=== PATIENT | male | born 1980 | race Caucasian/White ===

== ENCOUNTER → 2020-04-14 16:28 | Outpatient (BNVA) | payer OTHER, SELFPAY | PROVIDERS: PCP Family Medicine; Referring Provider Family Medicine; Visit Provider Anesthesiology | DX: G82.50 Quadriplegia, unspecified (principal); F11.99 Opioid use, unspecified with unspecified opioid-induced disorder; S24.101S Unspecified injury at T1 level of thoracic spinal cord, sequela | CPT/HCPCS: Q3014 ==

== ENCOUNTER → 2020-05-13 14:07 | Outpatient (BNVA) | payer OTHER, SELFPAY | PROVIDERS: PCP Family Medicine; Visit Provider Family Medicine Adult Medicine | DX: G82.50 Quadriplegia, unspecified (principal); Z98.1 Arthrodesis status | CPT/HCPCS: 99202 ==

== ENCOUNTER → 2020-06-08 15:20 | Outpatient (BNVA) | payer OTHER, SELFPAY | PROVIDERS: PCP Family Medicine; Visit Provider Family Medicine Adult Medicine | DX: G82.50 Quadriplegia, unspecified (principal); Z98.1 Arthrodesis status; Z79.899 Other long term (current) drug therapy | CPT/HCPCS: 99212 ==

== ENCOUNTER → 2020-07-08 15:37 | Outpatient (BNVA) | payer OTHER, SELFPAY | PROVIDERS: PCP Family Medicine; Visit Provider Family Medicine Adult Medicine | DX: G82.50 Quadriplegia, unspecified (principal); Z98.1 Arthrodesis status; Z79.899 Other long term (current) drug therapy | CPT/HCPCS: 99212 ==

== ENCOUNTER → 2020-08-10 14:56 | Outpatient (BNVA) | payer OTHER, SELFPAY | PROVIDERS: PCP Family Medicine; Visit Provider Family Medicine Adult Medicine | DX: G82.50 Quadriplegia, unspecified (principal); Z98.1 Arthrodesis status | CPT/HCPCS: Q3014 ==

== ENCOUNTER → 2020-09-09 15:05 | Outpatient (BNVA) | payer OTHER, SELFPAY | PROVIDERS: PCP Family Medicine; Visit Provider Family Medicine Adult Medicine | DX: Z98.1 Arthrodesis status (principal); G82.50 Quadriplegia, unspecified | CPT/HCPCS: Q3014 ==

== ENCOUNTER → 2020-09-30 15:20 | Outpatient (BNVA) | payer OTHER, SELFPAY | PROVIDERS: PCP Internal Medicine Hematology; Visit Provider Family Medicine Adult Medicine | DX: G82.50 Quadriplegia, unspecified (principal); Z98.1 Arthrodesis status; Z79.899 Other long term (current) drug therapy | CPT/HCPCS: 99212 ==

== ENCOUNTER → 2020-10-28 15:44 | Outpatient (BNVA) | payer OTHER, SELFPAY | PROVIDERS: PCP Family Medicine; Visit Provider Family Medicine Adult Medicine | DX: G82.50 Quadriplegia, unspecified (principal); Z98.1 Arthrodesis status | CPT/HCPCS: 99212 ==

== ENCOUNTER → 2020-12-02 15:48 | Outpatient (BNVA) | payer OTHER, SELFPAY | PROVIDERS: PCP Family Medicine; Visit Provider Family Medicine Adult Medicine | DX: G82.50 Quadriplegia, unspecified (principal); Z98.1 Arthrodesis status | CPT/HCPCS: 99212 ==

== ENCOUNTER → 2021-01-05 14:44 | Outpatient (BNVA) | payer OTHER, SELFPAY | PROVIDERS: PCP Otolaryngology; Visit Provider Nurse Practitioner Family | DX: G82.50 Quadriplegia, unspecified (principal); Z98.1 Arthrodesis status; Z99.3 Dependence on wheelchair; Z79.891 Long term (current) use of opiate analgesic; Z79.899 Other long term (current) drug therapy | CPT/HCPCS: 99212 ==

== ENCOUNTER → 2021-02-01 15:03 | Outpatient (BNVA) | payer OTHER, SELFPAY | PROVIDERS: Visit Provider Family Medicine Adult Medicine | DX: Z51.81 Encounter for therapeutic drug level monitoring (principal); S24.101S Unspecified injury at T1 level of thoracic spinal cord, sequela; G82.50 Quadriplegia, unspecified; F11.90 Opioid use, unspecified, uncomplicated | CPT/HCPCS: 99212 ==

== ENCOUNTER → 2021-03-03 15:47 | Outpatient (BNVA) | payer OTHER, SELFPAY | PROVIDERS: Visit Provider Family Medicine Adult Medicine | DX: S24.101S Unspecified injury at T1 level of thoracic spinal cord, sequela (principal); G82.50 Quadriplegia, unspecified; F11.20 Opioid dependence, uncomplicated; Z51.81 Encounter for therapeutic drug level monitoring; Z79.899 Other long term (current) drug therapy | CPT/HCPCS: 99212 ==

== ENCOUNTER → 2021-04-12 15:56 | Outpatient (BNVA) | payer OTHER, SELFPAY | PROVIDERS: Visit Provider Family Medicine Adult Medicine | DX: Z51.81 Encounter for therapeutic drug level monitoring (principal); F11.20 Opioid dependence, uncomplicated | CPT/HCPCS: 99211 ==

== ENCOUNTER → 2021-05-10 13:16 | Outpatient (BNVA) | payer OTHER, SELFPAY | PROVIDERS: PCP Family Medicine; Visit Provider Nurse Practitioner Family | DX: Z51.81 Encounter for therapeutic drug level monitoring (principal); F11.20 Opioid dependence, uncomplicated; L20.9 Atopic dermatitis, unspecified; G82.50 Quadriplegia, unspecified; S24.101S Unspecified injury at T1 level of thoracic spinal cord, sequela; Z98.1 Arthrodesis status; Z99.3 Dependence on wheelchair | CPT/HCPCS: 99212 ==

== ENCOUNTER 2021-06-07 15:24 | Outpatient (REF) | payer OTHER, SELFPAY | END 2021-06-07 15:25 | disposition home or self-care (01) | LOC: HO.LAB 15:24 | PROVIDERS: PCP Family Medicine; Visit Provider Nurse Practitioner Family | DX: G89.4 Chronic pain syndrome (principal); F11.20 Opioid dependence, uncomplicated; S24.101S Unspecified injury at T1 level of thoracic spinal cord, sequela; G82.50 Quadriplegia, unspecified; Z98.1 Arthrodesis status | CPT/HCPCS: 99212 ==

== ENCOUNTER → 2021-07-05 15:54 | Outpatient (BNVA) | payer OTHER, SELFPAY | PROVIDERS: PCP Family Medicine; Visit Provider Nurse Practitioner Family | DX: Z51.81 Encounter for therapeutic drug level monitoring (principal); F11.20 Opioid dependence, uncomplicated; G82.50 Quadriplegia, unspecified; S24.101S Unspecified injury at T1 level of thoracic spinal cord, sequela; Z98.1 Arthrodesis status; Z99.3 Dependence on wheelchair | CPT/HCPCS: 99212 ==

== ENCOUNTER → 2021-09-05 15:40 | Outpatient (BNVA) | payer OTHER, SELFPAY | PROVIDERS: PCP Family Medicine; Visit Provider Nurse Practitioner Family | DX: Z51.81 Encounter for therapeutic drug level monitoring (principal); F11.20 Opioid dependence, uncomplicated | CPT/HCPCS: 99212 ==

== ENCOUNTER → 2021-11-04 14:31 | Outpatient (BNVA) | payer OTHER, SELFPAY | PROVIDERS: PCP Family Medicine; Visit Provider Nurse Practitioner Family | DX: M62.838 Other muscle spasm (principal); G82.50 Quadriplegia, unspecified; S24.101S Unspecified injury at T1 level of thoracic spinal cord, sequela; Z98.1 Arthrodesis status; Z79.891 Long term (current) use of opiate analgesic | CPT/HCPCS: 99212 ==

== ENCOUNTER → 2022-01-02 14:56 | Outpatient (BNVA) | payer OTHER, SELFPAY | PROVIDERS: PCP Family Medicine; Visit Provider Nurse Practitioner Family | DX: S24.101S Unspecified injury at T1 level of thoracic spinal cord, sequela (principal); X58.XXXS Exposure to other specified factors, sequela; G62.9 Polyneuropathy, unspecified; G82.54 Quadriplegia, C5-C7 incomplete; M62.838 Other muscle spasm; Z98.1 Arthrodesis status; Z99.3 Dependence on wheelchair | CPT/HCPCS: 99212 ==

== ENCOUNTER → 2022-01-30 15:21 | Outpatient (BNVA) | payer OTHER, SELFPAY | PROVIDERS: PCP Family Medicine; Visit Provider Nurse Practitioner Family | DX: S24.101S Unspecified injury at T1 level of thoracic spinal cord, sequela (principal); G82.50 Quadriplegia, unspecified; G62.9 Polyneuropathy, unspecified; Z98.1 Arthrodesis status; M62.838 Other muscle spasm | CPT/HCPCS: 99212 ==

== ENCOUNTER → 2022-03-03 14:59 | Outpatient (BNVA) | payer OTHER, SELFPAY | PROVIDERS: PCP Family Medicine; Visit Provider Nurse Practitioner Family | DX: Z51.81 Encounter for therapeutic drug level monitoring (principal); F11.20 Opioid dependence, uncomplicated; G62.9 Polyneuropathy, unspecified; G82.50 Quadriplegia, unspecified; M62.838 Other muscle spasm; S24.101S Unspecified injury at T1 level of thoracic spinal cord, sequela; Z98.1 Arthrodesis status | CPT/HCPCS: 99212 ==

== ENCOUNTER → 2022-04-18 15:03 | Outpatient (BNVA) | payer OTHER, SELFPAY | PROVIDERS: PCP Family Medicine; Visit Provider Nurse Practitioner Family | DX: Z51.81 Encounter for therapeutic drug level monitoring (principal); F11.20 Opioid dependence, uncomplicated; G82.50 Quadriplegia, unspecified; M62.838 Other muscle spasm; G62.9 Polyneuropathy, unspecified; S24.101S Unspecified injury at T1 level of thoracic spinal cord, sequela; Z98.1 Arthrodesis status | CPT/HCPCS: 99212 ==

== ENCOUNTER → 2022-06-20 15:00 | Outpatient (BNVA) | payer OTHER, SELFPAY | PROVIDERS: PCP Family Medicine; Visit Provider Nurse Practitioner Family | DX: Z51.81 Encounter for therapeutic drug level monitoring (principal); G82.50 Quadriplegia, unspecified; G62.9 Polyneuropathy, unspecified; G89.29 Other chronic pain; M62.838 Other muscle spasm; K62.89 Other specified diseases of anus and rectum; N31.8 Other neuromuscular dysfunction of bladder; S24.101D Unspecified injury at T1 level of thoracic spinal cord, subsequent encounter; Z98.1 Arthrodesis status | CPT/HCPCS: 99212 ==

== ENCOUNTER 2022-07-20 14:06 | Outpatient (REF) | payer OTHER, SELFPAY ==
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
== END 2022-07-20 14:07 | disposition home or self-care (01) ==
LOC: HO.MRI 14:06
PROVIDERS: PCP Family Medicine; Visit Provider Nurse Practitioner Family
DX: S14.106A Unspecified injury at C6 level of cervical spinal cord, initial encounter (principal); S24.101S Unspecified injury at T1 level of thoracic spinal cord, sequela; G82.50 Quadriplegia, unspecified; G89.4 Chronic pain syndrome; Z98.1 Arthrodesis status
CPT/HCPCS: 72146; 72148

== ENCOUNTER → 2022-07-28 14:52 | Outpatient (BNVA) | payer OTHER, SELFPAY | PROVIDERS: PCP Family Medicine; Visit Provider Urology | DX: N31.8 Other neuromuscular dysfunction of bladder (principal); R32 Unspecified urinary incontinence | CPT/HCPCS: 51798; 99202 ==

== ENCOUNTER 2022-08-02 05:54 | Outpatient (REF) | payer OTHER, SELFPAY ==
--- NOTE | ~2022-08-02 | FL_ITS ---
EXAMINATION: XR FLUOROSCOPY WITH IMAGES CLINICAL INFORMATION: K62.89 - Other specified diseases of anus and rectum COMPARISON: MR lumbar spine 07/20/2022 TECHNIQUE: Fluoroscopy Supervised By: Dr. Ady Kennedy. Fluoroscopy Time: 0.2 minutes. Cumulative Dose: 11.4 mGy. DAP: 1.44 Gycm2. Images: 1. FINDINGS: There is a spinal needle overlying the lower coccyx with fifth overlying the anterior cortex. There is contrast extending along the anterior aspect of the coccyx. No visible vascular communication. FL/FL guidance in treatment room IMPRESSION: Fluoroscopy for pain management procedure.
== END 2022-08-02 05:55 | disposition home or self-care (01) ==
LOC: CF 05:54
PROVIDERS: Visit Provider Internal Medicine
DX: K62.89 Other specified diseases of anus and rectum (principal); G89.4 Chronic pain syndrome
CPT/HCPCS: 64999; J1020

== ENCOUNTER → 2022-08-15 15:25 | Outpatient (BNVA) | payer OTHER, SELFPAY | PROVIDERS: PCP Family Medicine; Visit Provider Nurse Practitioner Family | DX: Z51.81 Encounter for therapeutic drug level monitoring (principal); F11.20 Opioid dependence, uncomplicated; M62.838 Other muscle spasm; K62.89 Other specified diseases of anus and rectum; G89.29 Other chronic pain; S24.101S Unspecified injury at T1 level of thoracic spinal cord, sequela; Z98.1 Arthrodesis status | CPT/HCPCS: 99212 ==

== ENCOUNTER → 2022-09-25 13:54 | Outpatient (BNVA) | payer OTHER, SELFPAY | PROVIDERS: PCP Family Medicine; Visit Provider Internal Medicine | DX: G89.4 Chronic pain syndrome (principal); S14.106D Unspecified injury at C6 level of cervical spinal cord, subsequent encounter | CPT/HCPCS: 99212 ==

== ENCOUNTER → 2022-11-20 15:36 | Outpatient (BNVA) | payer OTHER, SELFPAY | PROVIDERS: Visit Provider Nurse Practitioner Family | DX: Z79.891 Long term (current) use of opiate analgesic (principal) | CPT/HCPCS: 99211 ==

== ENCOUNTER 2022-12-04 15:44 | Outpatient (AMB) | payer OTHER, SELFPAY ==
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
== END 2022-12-04 15:52 | disposition home or self-care (01) ==
PROVIDERS: PCP Family Medicine; Visit Provider Nurse Practitioner Family
DX: S14.106A Unspecified injury at C6 level of cervical spinal cord, initial encounter (principal); G89.4 Chronic pain syndrome
CPT/HCPCS: 99442

== ENCOUNTER → 2022-12-04 15:44 | Outpatient (BNVA) | payer OTHER, SELFPAY | PROVIDERS: PCP Family Medicine; Visit Provider Nurse Practitioner Family ==

== ENCOUNTER 2023-01-15 15:25 | Outpatient (AMB) | payer OTHER, SELFPAY ==
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
[2023-01-15 15:42] VITALS: BP 118/71; PULSE 72; O2SAT 98; BMI 27.4
== END 2023-01-15 15:51 | disposition home or self-care (01) ==
PROVIDERS: PCP Family Medicine; Visit Provider Nurse Practitioner Family
DX: G89.4 Chronic pain syndrome (principal); G82.50 Quadriplegia, unspecified; M62.838 Other muscle spasm; Z79.891 Long term (current) use of opiate analgesic; Z98.1 Arthrodesis status; S24.101S Unspecified injury at T1 level of thoracic spinal cord, sequela
CPT/HCPCS: 99214

== ENCOUNTER → 2023-01-15 15:25 | Outpatient (BNVA) | payer OTHER, SELFPAY | PROVIDERS: PCP Family Medicine; Visit Provider Nurse Practitioner Family | DX: G89.4 Chronic pain syndrome (principal); M62.838 Other muscle spasm; G82.50 Quadriplegia, unspecified; S24.101S Unspecified injury at T1 level of thoracic spinal cord, sequela; Z98.1 Arthrodesis status | CPT/HCPCS: 99212 ==

== ENCOUNTER 2023-03-16 15:02 | Outpatient (AMB) | payer OTHER, SELFPAY ==
[2023-03-16 15:20] VITALS: BP 140/88; PULSE 64; RESP 16; O2SAT 95; BMI 27.4
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
== END 2023-03-16 15:35 | disposition home or self-care (01) ==
PROVIDERS: PCP Family Medicine; Visit Provider Registered Nurse Emergency
DX: G89.4 Chronic pain syndrome (principal); S24.101S Unspecified injury at T1 level of thoracic spinal cord, sequela; G82.50 Quadriplegia, unspecified; Z79.891 Long term (current) use of opiate analgesic; Z98.1 Arthrodesis status; M62.838 Other muscle spasm
CPT/HCPCS: 99213

== ENCOUNTER → 2023-03-16 15:02 | Outpatient (BNVA) | payer OTHER, SELFPAY | PROVIDERS: PCP Family Medicine; Visit Provider Registered Nurse Emergency | DX: Z51.81 Encounter for therapeutic drug level monitoring (principal); F11.20 Opioid dependence, uncomplicated; M62.838 Other muscle spasm; G82.50 Quadriplegia, unspecified; G89.4 Chronic pain syndrome; Z98.1 Arthrodesis status; S24.101S Unspecified injury at T1 level of thoracic spinal cord, sequela | CPT/HCPCS: 99212 ==

== ENCOUNTER 2023-05-18 14:59 | Outpatient (AMB) | payer OTHER, SELFPAY ==
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
[2023-05-18 15:12] VITALS: BP 138/79; PULSE 62; O2SAT 97; BMI 29.0
== END 2023-05-18 15:29 | disposition home or self-care (01) ==
PROVIDERS: PCP Family Medicine; Visit Provider Nurse Practitioner Family
DX: S24.101S Unspecified injury at T1 level of thoracic spinal cord, sequela (principal); G82.50 Quadriplegia, unspecified; Z98.1 Arthrodesis status; G89.4 Chronic pain syndrome; M62.838 Other muscle spasm; N31.9 Neuromuscular dysfunction of bladder, unspecified
CPT/HCPCS: 99214

== ENCOUNTER → 2023-05-18 14:59 | Outpatient (BNVA) | payer OTHER, SELFPAY | PROVIDERS: PCP Family Medicine; Visit Provider Nurse Practitioner Family | DX: G89.4 Chronic pain syndrome (principal); G82.50 Quadriplegia, unspecified; S24.101S Unspecified injury at T1 level of thoracic spinal cord, sequela; M62.838 Other muscle spasm; N31.9 Neuromuscular dysfunction of bladder, unspecified; Z98.1 Arthrodesis status | CPT/HCPCS: 99212 ==

== ENCOUNTER 2023-07-13 14:55 | Outpatient (AMB) | payer OTHER, SELFPAY ==
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
[2023-07-13 15:18] VITALS: BP 130/86; PULSE 66; RESP 16; O2SAT 98; BMI 29.0
== END 2023-07-13 15:29 | disposition home or self-care (01) ==
PROVIDERS: PCP Family Medicine; Visit Provider Nurse Practitioner Family
DX: G89.4 Chronic pain syndrome (principal); G82.50 Quadriplegia, unspecified; S24.101S Unspecified injury at T1 level of thoracic spinal cord, sequela; Z79.891 Long term (current) use of opiate analgesic; Z98.1 Arthrodesis status; M62.838 Other muscle spasm; M54.2 Cervicalgia
CPT/HCPCS: 99214

== ENCOUNTER → 2023-07-13 14:55 | Outpatient (BNVA) | payer OTHER, SELFPAY | PROVIDERS: PCP Family Medicine; Visit Provider Nurse Practitioner Family | DX: Z51.81 Encounter for therapeutic drug level monitoring (principal); F11.20 Opioid dependence, uncomplicated; M62.838 Other muscle spasm; M54.2 Cervicalgia; M25.511 Pain in right shoulder; G82.50 Quadriplegia, unspecified; G89.4 Chronic pain syndrome; S24.101S Unspecified injury at T1 level of thoracic spinal cord, sequela | CPT/HCPCS: 99212 ==

== ENCOUNTER 2023-09-04 15:15 | Outpatient (AMB) | payer OTHER, SELFPAY ==
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
[2023-09-04 15:28] VITALS: BP 119/80; PULSE 80; O2SAT 97; BMI 29.0
== END 2023-09-04 15:46 | disposition home or self-care (01) ==
PROVIDERS: PCP Family Medicine; Visit Provider Nurse Practitioner Family
DX: G89.4 Chronic pain syndrome (principal); M62.838 Other muscle spasm; G82.50 Quadriplegia, unspecified; Z79.891 Long term (current) use of opiate analgesic; K62.89 Other specified diseases of anus and rectum; Z98.1 Arthrodesis status; G89.29 Other chronic pain; M79.18 Myalgia, other site; G62.9 Polyneuropathy, unspecified; M25.511 Pain in right shoulder; S14.106A Unspecified injury at C6 level of cervical spinal cord, initial encounter; S24.101S Unspecified injury at T1 level of thoracic spinal cord, sequela
CPT/HCPCS: 99214

== ENCOUNTER → 2023-09-04 15:15 | Outpatient (BNVA) | payer OTHER, SELFPAY | PROVIDERS: PCP Family Medicine; Visit Provider Nurse Practitioner Family | DX: Z51.81 Encounter for therapeutic drug level monitoring (principal); F11.20 Opioid dependence, uncomplicated; S14.106A Unspecified injury at C6 level of cervical spinal cord, initial encounter; S24.101S Unspecified injury at T1 level of thoracic spinal cord, sequela; G82.50 Quadriplegia, unspecified; M62.838 Other muscle spasm; K62.89 Other specified diseases of anus and rectum; M79.18 Myalgia, other site; G62.9 Polyneuropathy, unspecified; M25.511 Pain in right shoulder; G89.29 Other chronic pain; Z98.1 Arthrodesis status | CPT/HCPCS: 99212 ==

== ENCOUNTER 2023-10-30 14:57 | Outpatient (AMB) | payer OTHER, SELFPAY ==
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
[2023-10-30 15:08] VITALS: BP 138/102; PULSE 67; O2SAT 97; BMI 25.8
[2023-10-30 15:09] VITALS: BP 167/96
== END 2023-10-30 15:29 | disposition home or self-care (01) ==
PROVIDERS: PCP Family Medicine; Visit Provider Nurse Practitioner Family
DX: G89.4 Chronic pain syndrome (principal); M62.838 Other muscle spasm; G82.50 Quadriplegia, unspecified; Z98.1 Arthrodesis status; S24.101S Unspecified injury at T1 level of thoracic spinal cord, sequela
CPT/HCPCS: 99214

== ENCOUNTER → 2023-10-30 14:57 | Outpatient (BNVA) | payer OTHER, SELFPAY | PROVIDERS: PCP Family Medicine; Visit Provider Nurse Practitioner Family | DX: G82.54 Quadriplegia, C5-C7 incomplete (principal); S14.106S Unspecified injury at C6 level of cervical spinal cord, sequela; S24.101S Unspecified injury at T1 level of thoracic spinal cord, sequela; M62.838 Other muscle spasm; G89.4 Chronic pain syndrome; Z98.1 Arthrodesis status; Z79.891 Long term (current) use of opiate analgesic | CPT/HCPCS: 99212 ==

== ENCOUNTER 2024-01-10 15:08 | Outpatient (AMB) | payer OTHER, SELFPAY ==
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
[2024-01-10 15:21] VITALS: BP 144/90; PULSE 75; RESP 16; O2SAT 94
== END 2024-01-10 15:39 | disposition home or self-care (01) ==
PROVIDERS: PCP Family Medicine; Visit Provider Nurse Practitioner Family
DX: G82.50 Quadriplegia, unspecified (principal); G89.4 Chronic pain syndrome; M79.18 Myalgia, other site; G89.29 Other chronic pain; Z98.1 Arthrodesis status; S24.101S Unspecified injury at T1 level of thoracic spinal cord, sequela; M62.838 Other muscle spasm; S14.106A Unspecified injury at C6 level of cervical spinal cord, initial encounter
CPT/HCPCS: 99214; G2211

== ENCOUNTER → 2024-01-10 15:08 | Outpatient (BNVA) | payer OTHER, SELFPAY | PROVIDERS: PCP Family Medicine; Visit Provider Nurse Practitioner Family | DX: G82.54 Quadriplegia, C5-C7 incomplete (principal); M79.18 Myalgia, other site; G89.29 Other chronic pain; S24.101S Unspecified injury at T1 level of thoracic spinal cord, sequela; S14.106A Unspecified injury at C6 level of cervical spinal cord, initial encounter; X58.XXXA Exposure to other specified factors, initial encounter; Y93.9 Activity, unspecified; Y92.9 Unspecified place or not applicable; Y99.9 Unspecified external cause status; Z98.1 Arthrodesis status | CPT/HCPCS: 99212 ==

== ENCOUNTER 2024-05-12 15:54 | Outpatient (AMB) | payer OTHER, SELFPAY ==
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
[2024-05-12 16:16] VITALS: BP 202/118; BP 207/131; PULSE 62; O2SAT 98; BMI 29.0
[2024-05-12 16:17] VITALS: BP 130/62
== END 2024-05-12 16:28 | disposition home or self-care (01) ==
PROVIDERS: PCP Family Medicine; Visit Provider Nurse Practitioner Family
DX: G82.50 Quadriplegia, unspecified (principal); G89.4 Chronic pain syndrome; M79.18 Myalgia, other site; G89.29 Other chronic pain; Z98.1 Arthrodesis status; S14.106A Unspecified injury at C6 level of cervical spinal cord, initial encounter; Z79.891 Long term (current) use of opiate analgesic
CPT/HCPCS: 99214; G2211

== ENCOUNTER → 2024-05-12 15:54 | Outpatient (BNVA) | payer OTHER, SELFPAY | PROVIDERS: PCP Family Medicine; Visit Provider Nurse Practitioner Family | DX: Z51.81 Encounter for therapeutic drug level monitoring (principal); M79.18 Myalgia, other site; F11.20 Opioid dependence, uncomplicated; G82.50 Quadriplegia, unspecified; G89.29 Other chronic pain; S14.106D Unspecified injury at C6 level of cervical spinal cord, subsequent encounter; Z98.1 Arthrodesis status | CPT/HCPCS: 99212 ==

== ENCOUNTER 2024-07-07 15:05 | Outpatient (AMB) | payer OTHER, SELFPAY ==
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
[2024-07-07 16:03] VITALS: BP 140/70; PULSE 78
--- OUTSIDE RECORDS SUMMARY | 2024-07-07 17:57 | XMS_ITS | Encounter Summary ---
Author Organization [facility] Address [address] [facility] [address] [place] [address] Care Team Providers Care Surgical Dressing Maker Name Role Phone Unavailable Primary Care Provider Unavailabl e Encounter Details Date Type Department Care Team (Latest Contact Info) Description 10/12/[address] [facility] Dental, Provider, DDS Social History Tobacco Use Types Packs/Day Years Used Date Smoking Tobacco: Never Assessed Sex and Gender Information Value Date Recorded Sex Assigned at Male 03/06/2022 10:23 AM EDT Legal Sex Male 10:23 AM EDT Gender Identity Male 03/06/2022 10:23 AM EDT Sexual Orientation Choose not to disclose 2021 10:23 AM EDT documented as of this encounter Plan of Treatment Upcoming Encounters Date Type Department Care Team (Late st Contact Info) Description 07/23/2024 4:00 PM EDT Office Visit [facility] [address] [place] [phone] Kym Pedroza BDS [address] [place] [id number] 12/08/2024 4:00 PM EDT Office Visit [facility] [address] [place] [address] Orquidea Ruby [address] [place] [address] documented as of this encounter Visit Diagnoses Not on filedocumented in this encounter
--- OUTSIDE RECORDS SUMMARY | 2024-07-07 17:57 | XMS_ITS | Clinical Summary ---
Author Organization [employer] Address [address] [facility] [address] [place] [address] Care Team Providers Care Podiatric Surgeon Name Role Phone Unavailable Primary Care Provider Unavailabl e Allergies No known active allergies Medications Amphetamine-De xtroamphetamin e (ADDERALL PO) Take by mouth. Activ e nitrofurantoin (Macrodantin) 50 MG capsule Take 1 capsule by mouth every 6 (six) hours. Active Ergocalciferol (Vitamin D2) 50 MCG (2000 UT) tablet take 1 capsule ([id number]) by oral route every week Active oxyCODONE (Roxicodone) 2.5 MG immediate release split tablet Take 1 tablet by mouth every 4 (four) hours. Active oxybutynin (Ditropan) 2.5 mg split tablet Take 1 tablet by mouth every 12 (twelve) hours. Active sennosides (Senokot) 4.3 mg tablet (HALF TABLET) take 2 tablet by oral route every day as needed for constipation Active alendronate (Fosamax) 70 MG tablet Take 1 tablet by mouth once a week. Active amLODIPine (Norvasc) 10 MG tablet TAKE 1 TABLET BY MOUTH 1 TIME EACH DAY. 2 Active Azelastine HCl 137 MCG/SPRAY solution INHALE 1 TO 2 SPRAYS INTO NOSTRILS TWICE A DAY 2 Active baclofen (Lioresal) 20 MG tablet Take 20 mg by mouth in the morning, at noon, and at bedtime. 2 Active [facility] Acne Treatment 10 % gel APPLY 1 APPLICATION TWICE A DAY TO CHEST*N/C 2 Active buprenorphine (Butrans) 15 MCG/HR APPLY 1 PATCH TRANSDERMALLY EVERY 7 DAYS NEEDED FOR PAIN FOR 28 DAYS 2 Active clindamycin (Clindagel) 1 % gel APPLY 1 APPLICATION TWICE DAILY TO CHEST 2 Active clonazePAM (KlonoPIN) 1 MG tablet TAKE 1/2 TABLET BY MOUTH TWICE A DAY AND TAKE 1 TABLET AT BEDTIME 2 Active cloNIDine (Catapres) 0.1 MG tablet Take 0.1 mg by mouth in the morning and at bedtime. 2 Active DULoxetine (Cymbalta) [address] capsule Take 1 capsule by mouth every 12 (twelve) hours. Active DULoxetine (Cymbalta) [address] capsule Take 60 mg by mouth in the morning. 2 Active gabapentin (Neurontin) 600 MG tablet 2 Active ibuprofen 800 MG tablet 2 Active ketoconazole (NIZOral) 2 % shampoo APPLY TO SCALP 2X/WK, LEAVE ON 5 MINUTES THEN WASH OFF 2 Active lisinopril 20 MG tablet TAKE 1 TABLET (20 MG TOTAL) BY MOUTH ONE TIME EACH DAY 2 Active oxybutynin (Ditropan) 5 MG tablet TAKE 1 TABLET BY MOUTH FOUR TIMES A DAY STOP THE OXYBUTYNIN ER 15 MG DOSE 2 Active Trintellix 10 MG tablet Take 1 tablet by mouth in the morning. 2 Active Active Problems No known active problems Encounters Date Type Department Care Team Description 07/01/2024 4:00 PM EST Office Visit [facility] [address] [place] [phone] Kym Pedroza BDS 06/04/2024 4:00 PM EST Office Visit [facility] [address] [place] [phone] Orquidea Ruby from Last 3 Months Social History Tobacco Use Types Packs/Day Years Used Date Smoking Tobacco: Former Cigarettes Smokeless Tobacco: Never Tobacco Cessation:Counseling Given: Not Answered Sex and Gender Information Value Date Recorded Sex Assigned at Male 03/06/2022 10:23 AM EDT Legal Sex Male 10:23 AM EDT Gender Identity Male 03/06/2022 10:23 AM EDT Sexual Orientation Choose not to disclose 2021 10:23 AM EDT Last Filed Vital Signs Vital Sign Reading Time Taken Comments Blood Pressure 160/115 06/04/2024 4:23 PM EST 170 /112 Pt stated his BP usually runs higher Pulse 74 06/04/2024 4:23 PM EST Temperature - - Respiratory Rate - - Oxygen Saturation - - Inhaled Oxygen Concentration - - Weight - - Height - - Body Mass Index - - Plan of Treatment Upcoming Encounters Date Type Department Care Team (Late st Contact Info) Description 07/23/2024 4:00 PM EDT Office Visit [facility] [address] [place] [phone] Kym Pedroza BDS [address] [place] [address] 12/08/2024 4:00 PM EDT Office Visit [facility] [address] [place] [phone] Orquidea Ruby [address] [place], [place] [phone] Health Maintenance Due Date Last Done Comments CT Colonography 1978 Colonoscopy 1978 Colorectal Cancer Screening 1978 Dental X-Ray: Bitewings 1978 Dental X-Ray: Full Mouth 1978 Depression Screening 1978 FIT DNA/Cologuard 1978 FIT 1978 FOBT 1978 HIV Screening 1978 Lipid Panel 1978 SDOH Screening 1978 Sigmoidoscopy 1978 Alcohol/Substance Use Screening 1990 Family Planning (PISQ) 1993 Hepatitis C Screening 02/06/1996 DTaP/Tdap/Td Vaccines (1 - Tdap) 1997 Hepatitis B Vaccines (1 of 3 - 19+ 3-dose series) 1997 COVID-19 Vaccine (4 2023-2 5 season) 2024 05/12/2021, 08/26/2020, 08/05/2020 Influenza Vaccine (#1) 2024 Dental Prophylaxis 12/03/2024 06/04/2024, 11/23/2022, 05/02/2022 Dental Oral Exam 12/30/2024 07/01/2024 Tobacco Screening 07/01/2025 07/01/2024 Zoster Vaccines (1 of 2) 02/06/2028 RSV Patients and Patients Aged 60 years or older (1 - 1-dose 75+ series) 2053 HIB Vaccines Aged Out No longer eligi ble based on patient's age to complete this topic HPV Vaccines Aged Out No longer eligi ble based on patient's age to complete this topic Hepatitis A Vaccines Aged Out No long er eligible based on patient's age to complete this topic IPV Vaccines Aged Out No longer eligi ble based on patient's age to complete this topic Meningococcal Vaccine Aged Out No rocio elie eligible based on patient's age to complete this topic Pneumococcal Vaccine: Pediatrics (0 to 5 Years) and At-Risk Patients (6 to 49) Years) Aged Out No longer eligible b ased on patient's age to complete this topic RSV under 20 months Aged Out No longe r eligible based on patient's age to complete this topic Rotavirus Vaccines Aged Out No longer eligible based on patient's age to complete this topic Procedures Procedure Name Priority Date/Time Associated Diagnosis Comments INTRAORAL - PERIAPICAL EACH ADDITIONAL RADIOGRAPHIC IMAGE Routine 07/01/2024 4:00 PM EST INTRAORAL - PERIAPICAL EACH ADDITIONAL RADIOGRAPHIC IMAGE Routine 07/01/2024 4:00 PM EST INTRAORAL - PERIAPICAL EACH ADDITIONAL RADIOGRAPHIC IMAGE Routine 07/01/2024 4:00 PM EST INTRAORAL - PERIAPICAL FIRST RADIOGRAPHIC IMAGE Routine 07/01/2024 4:00 PM EST PERIODIC ORAL EVALUATION - ESTABLISHED PATIENT Routine 07/01/2024 4:00 PM EST TOPICAL APPLICATION OF FLUORIDE - EXCLUDING VARNISH Routine 06/04/2024 4:00 PM EST PROPHYLAXIS - ADULT Routine 06/04/2024 4 :00 PM EST CASE PRESENTATION, DETAILED AND EXTENSIVE TREATMENT PLANNING Routine 06/04/2024 4:00 PM EST Max COMPLETE DENTURE Routine 06/04/2024 12:00 AM EST 11 EXTRACTION Routine 06/04/2024 12:00 AM EST 10 EXTRACTION Routine 06/04/2024 12:00 AM EST 9 EXTRACTION Routine 06/04/2024 12:00 AM EST 8 EXTRACTION Routine 06/04/2024 12:00 AM EST 7 EXTRACTION Routine 06/04/2024 12:00 AM EST 6 EXTRACTION Routine 06/04/2024 12:00 AM EST from Last 3 Months Insurance DENTAL [facility]
--- OUTSIDE RECORDS SUMMARY | 2024-07-07 17:57 | XMS_ITS | Encounter Summary ---
Author Organization [employer] Address [address] [facility] [address] [place] [address] Care Team Providers Care Fourdrinier Tender Name Role Phone Unavailable Primary Care Provider Unavailabl e Reason for Visit * Reason Comments Dental Exam Encounter Details Date Type Department Care Team (Late st Contact Info) Description 07/01/2024 4:00 PM EST Office Visit [facility] [address] [place], [place] [phone] Kym Pedroza BDS [address] [place] [address] Social History Tobacco Use Types Packs/Day Years Used Date Smoking Tobacco: Former Cigarettes Smokeless Tobacco: Never Sex and Gender Information Value Date Recorded Sex Assigned at Male 03/06/2022 10:23 AM EDT Legal Sex Male 10:23 AM EDT Gender Identity Male 03/06/2022 10:23 AM EDT Sexual Orientation Choose not to disclose 2021 10:23 AM EDT documented as of this encounter Progress Notes * Kym Pedroza BDS - 07/01/2024 4:00 PM EST Dental procedures in this visit D0120 - PERIODIC ORAL EVALUATION - ESTABLISHED PATIENT (Completed) Service provider: Kym Pedroza BDS Billing provider: Kym Pedroza BDS D0220 - INTRAORAL - PERIAPICAL FIRST RADIOGRAPHIC IMAGE (Completed) Service provider: Kym Pedroza BDS Billing provider: Kym Pedroza BDS D0230 - INTRAORAL - PERIAPICAL EACH ADDITIONAL RADIOGRAPHIC IMAGE (Completed) Service provider: Kym Pedroza BDS Billing provider: Kym Pedroza BDS D0230 - INTRAORAL - PERIAPICAL EACH ADDITIONAL RADIOGRAPHIC IMAGE (Completed) Service provider: Kym Pedroza BDS Billing provider: Kym Pedroza BDS D0230 - INTRAORAL - PERIAPICAL EACH ADDITIONAL RADIOGRAPHIC IMAGE (Completed) Service provider: Kym Pedroza BDS Billing provider: Kym Pedroza BDS Subjective Patient ID: Aki Leal is a 44 y.o. male. Chief Complaint Patient presents with Dental Exam HPI Objective Soft Tissue Exam No findings documented this visit Dental Exam Extensive restorations on multiple teeth.Need crowns on 20,22,27,29 Radiographic Interpretation: Associated radiographs for today's visit were reviewed and finding(s) were discussed with the patient. Findings include: No findings Hard Tissue Exam: Gross/rampant decay Assessment/Plan Multiple surface big restorations on all teeth Crowns on 20,22,27,29 multiple teeth to maintain structure,function and integrity. documented in this encounter Plan of Treatment Upcoming Encounters Date Type Department Care Team (Late st Contact Info) Description 07/23/2024 4:00 PM EDT Office Visit [facility] [address] [place] [phone] Kym Pedroza BDS [address] [place] [phone] 12/08/2024 4:00 PM EDT Office Visit [facility] [address] [place] [phone] Orquidea Ruby [address] [place] [phone] Scheduled Orders Name Type Priority Associated Diagnoses Orde r Schedule 27 27 CROWN - PORCELAIN/CERAMIC Dental Routine 1 Occurrences starting 07/01/2024 29 29 CROWN - PORCELAIN/CERAMIC Dental Routine 1 Occurrences starting 07/01/2024 22 22 CROWN - PORCELAIN/CERAMIC Dental Routine 1 Occurrences starting 07/01/2024 21 21 CROWN - PORCELAIN/CERAMIC Dental Routine 1 Occurrences starting 07/01/2024 documented as of this encounter Procedures Procedure Name Priority Date/Time Associated Diagnosis Comments PERIODIC ORAL EVALUATION - ESTABLISHED PATIENT Routine 07/01/2024 4:00 PM EST INTRAORAL - PERIAPICAL FIRST RADIOGRAPHIC IMAGE Routine 07/01/2024 4:00 PM EST INTRAORAL - PERIAPICAL EACH ADDITIONAL RADIOGRAPHIC IMAGE Routine 07/01/2024 4:00 PM EST INTRAORAL - PERIAPICAL EACH ADDITIONAL RADIOGRAPHIC IMAGE Routine 07/01/2024 4:00 PM EST INTRAORAL - PERIAPICAL EACH ADDITIONAL RADIOGRAPHIC IMAGE Routine 07/01/2024 4:00 PM EST documented in this encounter Visit Diagnoses Not on filedocumented in this encounter
--- OUTSIDE RECORDS SUMMARY | 2024-07-07 17:57 | XMS_ITS | Continuity of Care Document ---
Author Organization [facility] Address [address] [place] [address]- Care Team Providers Care Time Signal Wirer Name Role Phone Rikki Fletcher DO Primary Care Physician Encounter [facility] Date(s): 05/15/24 - 06/14/24 [facility] [address] [place] [id number] Encounter Type: Triage Allergies, Adverse Reactions, Alerts No Known Allergies Immunizations Given and Recorded Vaccine Date Status Refusal Reason SARS-CoV-2 (COVID-19) mRNA-1273 vaccine 05/12/21 R ecorded SARS-CoV-2 (COVID-19) mRNA BNT-162b2 vac 08/26/20 Recorded SARS-CoV-2 (COVID-19) mRNA BNT-162b2 vac 08/05/20 Recorded Medications 4x4 Power Wheelchair 4x4 Power Wheelchair, See Instructions, # 1 each, Refills 0, Tot. Refills 0, Maintenance, dx Tetraplegic G82.53, 08/29/23 3:45:00 AM EDT, Supply Start Date: 08/29/23 Status: Ordered Quantity: 1.0 Unit: each Repeat number: 1 Adderall 20 mg oral tablet 1 tablet = 20 mg, By Mouth, 2 times a day, # 60 tablet, 0 Refills, Maintenance, 04/14/24 12:51:00 PMEST, [facility]/pharmacy #[id number], Partial fill upon patient request if the prescription is for a schedule IIopioid drug., 1 tablet By Mouth 2 times a day, 172, cm, 02/19/24 15:33:00 EDT, Height, 81, kg, 09/05/23 16:09:00 EDT, Dry Weight Start Date: 04/14/24 Status: Ordered Quantity: 60.0 Unit: tablet Repeat number: 1 baclofen 20 mg oral tablet 1, tablet, By Mouth, 3 times a day, # 270 tablet, Refills 0, Tot. Refills 0, Maintenance, 01/21/24 12:26:00 PM EDT, Route to Pharmacy Electronically, [facility]/pharmacy #[id number], 172, cm, 11/22/23 15:01:00 EDT, Height, 81, kg, 09/05/23 16:09:00 EDT, Dry Weight Start Date: 01/21/24 Status: Ordered Quantity: 270.0 Unit: tablet Repeat number: 1 BACLOFEN 20 MG TABLET BACLOFEN 20 MG TABLET, 1, tablet, By Mouth, 3 times a day, # 270 tablet, 0 Refills, Maintenance, 03/27/24 1:59:00 PM EST, 172, cm, 02/19/24 15:33:00 EDT, Height, 81, kg, 09/05/23 16:09:00 EDT, Dry Weight Start Date: 03/27/24 Status: Ordered Quantity: 270.0 Unit: tablet Repeat number: 1 Bilateral LE Custom Thigh High Flat Knit CC II 30-40 mm Hg Compression Stockings Bilateral LE Custom Thigh High Flat Knit CC II 30-40 mm Hg Compression Stockings, See Instructions,# 2 pair, Refills 2, Tot. Refills 2, Maintenance, Wear daily all day. Dx: Edema 782.3, 07/13/11 11:19:49 AM EST Start Date: 07/13/11 Status: Ordered Quantity: 2.0 Unit: pair Repeat number: 3 Brace On 90 Degree Night Splint Brace On 90 Degree Night Splint, See Instructions, # 2 each, Refills 0, Tot. Refills 0, Maintenance, Bilateral night splint for dx: equinus deformity M21.62, 05/13/24 5:41:00 PM EST, Supply Start Date: 05/13/24 Status: Ordered Quantity: 2.0 Unit: each Repeat number: 1 buprenorphine 15 mcg/hr transdermal film, extended release 1 patch, Topically, Every Sunday, 0 Refills, Maintenance, 10/30/22 1:00:00 PM EDT, Partial fill uponpatient request if the prescription is for a schedule II opioid drug. Start Date: 10/30/22 Status: Ordered Repeat number: 1 Cannabis (Schedule I Substance) 0 Refills, Maintenance, 11/09/15 12:55:41 PM EDT Start Date: 11/09/15 Status: Ordered Repeat number: 1 clonazePAM 1 mg oral tablet See Instructions, 0.5 tablet twice a day and 1 tablet at bedtime, # 60 tablet, 3 Refills, Maintenance, spasticity, 04/14/24 12:53:00 PM EST, [facility]/pharmacy #[id number], Fill when it's due, 172, cm, 02/19/24 15:33:00 EDT, Height, 81, kg, 09/05/23 16:09:00 EDT, Dry Weight Start Date: 04/14/24 Status: Ordered Quantity: 60.0 Unit: tablet Repeat number: 4 cloNIDine 0.1 mg oral tablet 1, tablet, By Mouth, 2 times a day, # 180 tablet, Refills 1, Tot. Refills 1, Maintenance, 05/17/24 11:39:00 AM EST, Route to Pharmacy Electronically, [facility]/pharmacy #[id number], 172, cm, 02/19/24 15:33:00 EDT, Height, 81, kg, 09/05/23 16:09:00 EDT, Dry Weight Start Date: 05/17/24 Status: Ordered Quantity: 180.0 Unit: tablet Repeat number: 2 Compression- Lower Extremity (Knee High) See Instructions, # 1 pair, Refills 4, Tot. Refills 4, Maintenance, use daily, 01/28/14 3:18:23 PM EDT Start Date: 01/28/14 Status: Ordered Quantity: 1.0 Unit: pair Repeat number: 5 duloxetine 30 mg oral enteric coated capsule 1 capsule = 30 mg, By Mouth, Daily, for 90 days, Take in the afternon; continue taking the 60 mg inthe morning, # 90 capsule, 1 Refills, Hard Stop 07/12/24 12:34:00 PM EST, 01/14/24 12:34:00 PM EDT, [facility]/pharmacy #[id number], Partial fill upon patient request if the prescription is for a schedule II opioid drug., 172, cm, 11/22/23 15:01:00 EDT, Height, 81, kg, 09/05/23 16:09:00 EDT, Dry Weight Start Date: 01/14/24 Stop Date: 07/12/24 Status: Ordered Quantity: 90.0 Unit: capsule Repeat number: 2 duloxetine 60 mg oral enteric coated capsule 1 capsule = 60 mg, By Mouth, Daily, for 90 days, # 90 capsule, 1 Refills, Hard Stop 07/12/24 12:37:00PM EST, 01/14/24 12:37:00 PM EDT, EC Capsule, [facility]/pharmacy #[id number], 172, cm, 11/22/23 15:01:00 EDT, Height, 81, kg, 09/05/23 16:09:00 EDT, Dry Weight Start Date: 01/14/24 Stop Date: 07/12/24 Status: Ordered Quantity: 90.0 Unit: capsule Repeat number: 2 Econazole Nitrate 1% topical cream 1 application, Topically, 2 times a day, USE SPARINGLY., # 30 Gm, 0 Refills, [id number], 30, APPLY 1 APPLICATION TOPICALLY 2 TIMES A DAY,USE SPARINGLY, 172, cm, 01/13/21 14:18:00 EDT, Height, 79.38, kg, 05/11/20 10:46:00 EST, Dry Weight Start Date: 04/05/21 Status: Ordered Quantity: 30.0 Unit: g Repeat number: 1 Flonase 50 mcg/inh nasal spray 2 sprays, Nares, Both, Daily at bedtime, 0 Refills, Maintenance, 10/30/22 12:59:00 PM EDT, [place], Partial fill upon patient request if the prescription is for a schedule II opioid drug. Start Date: 10/30/22 Status: Ordered Repeat number: 1 gabapentin 300 mg oral capsule 600 mg, 2, capsule, By Mouth, 2 times a day, Refills 0, Maintenance, 08/03/21 3:39:00 PM EDT, Partial fill upon patient request if the prescription is for a schedule II opioid drug. Start Date: 08/03/21 Status: Ordered Repeat number: 1 GaviLAX oral powder for reconstitution = 17 Gm, By Mouth, Daily, DISSOLVE IN WATER BEFORE TAKING, # 510 Gm, 5 Refills, Maintenance, 10/23/23 5:27:00 PM EDT, [id number], 30, TAKE 17 GM BY MOUTH DAILY:DISSOLVE IN WATER BEFORE TAKING, 172, cm, 09/07/23 15:27:00 EDT, Height, 81, kg, 09/05/23 16:09:00 EDT, Dry Weight Start Date: 10/23/23 Status: Ordered Quantity: 510.0 Unit: g Repeat number: 1 Gloves, n/s or sterile, 100 per box Gloves, n/s or sterile, 100 per box, See Instructions, # 2 units, Refills 12, Tot. Refills 12, Maintenance, Dx: neurogenic bladder. Lifetime need, 11/26/14 1:29:00 PM EDT, Compound Start Date: 11/26/14 Status: Ordered Quantity: 2.0 Unit: Units Repeat number: 13 High back shower chair with tilt High back shower chair with tilt, See Instructions, # 1 units, Refills 0, Tot. Refills 0, Maintenance, Dx: Tetraplegia. Wt. 169 lbs., 05/31/17 4:22:00 PM EST, Compound Start Date: 05/31/17 Status: Ordered Quantity: 1.0 Unit: Units Repeat number: 1 Erik lift Erik lift, See Instructions, # 1 units, Refills 0, Tot. Refills 0, Maintenance, Dx: Tetraplegia, 12/31/14 12:32:59 PM EDT, Compound Start Date: 12/31/14 Status: Ordered Quantity: 1.0 Unit: Units Repeat number: 1 iBOT Personal Mobility iBOT Personal Mobility, See Instructions, # 1 each, Refills 0, Tot. Refills 0, Maintenance, use formobility, 12/06/23 3:27:00 PM EDT, Supply, 172, cm, 11/22/23 15:01:00 EDT, Height, 81, kg, 09/05/23 16:09:00 EDT, Dry Weight Start Date: 12/06/23 Status: Ordered Quantity: 1.0 Unit: each Repeat number: 1 Indication: Quadriplegia, unspecified Intermittent Urinary Catheter with insertion supply Intermittent Urinary Catheter with insertion supply, See Instructions, # 180 units, Refills 12, Tot. Refills 12, Maintenance, For 6X dailly use. Dx: neurogenic bladder, 11/26/14 1:26:27 PM EDT, Compound Start Date: 11/26/14 Status: Ordered Quantity: 180.0 Unit: Units Repeat number: 13 Large underpads Large underpads, See Instructions, # 150 units, Refills 12, Tot. Refills 12, Maintenance, use 6X / day. Dx: neurogenic bowel & bladder. Lifetime need, 11/26/14 1:33:33 PM EDT, Compound Start Date: 11/26/14 Status: Ordered Quantity: 150.0 Unit: Units Repeat number: 13 lisinopril 10 mg oral tablet 10 mg, 1, tablet, By Mouth, Daily, # 90 tablet, Refills 1, Tot. Refills 1, Maintenance, 01/14/24 3:02:00 PM EDT, Route to Pharmacy Electronically, [facility]/pharmacy #[id number], Partial fill upon patient request if the prescription is for a schedule II opioid drug., 172, cm, 11/22/23 15:01:00 EDT, Height, 81, kg, 09/05/23 16:09:00 EDT, Dry Weight Start Date: 01/14/24 Status: Ordered Quantity: 90.0 Unit: tablet Repeat number: 2 LLE Knee High Flat Knit CC II 30-40 mm Hg Compression Stockings LLE Knee High Flat Knit CC II 30-40 mm Hg Compression Stockings, See Instructions, # 2 each, Refills 1, Tot. Refills 1, Maintenance, Wear daily all day. Dx: Edema, 782.3, 06/01/11 9:59:29 AM EST Start Date: 06/01/11 Status: Ordered Quantity: 2.0 Unit: each Repeat number: 2 Lubricant 4 oz Lubricant 4 oz, See Instructions, # 1 units, Refills 12, Tot. Refills 12, Maintenance, Use 2x/day Dx: Neurogenic bowel & bladder., 11/26/14 1:32:05 PM EDT, Compound Start Date: 11/26/14 Status: Ordered Quantity: 1.0 Unit: Units Repeat number: 13 Mattress overlay with pump (alternating mattress for ulcer prevention)- Mattress overlay with pump (alternating mattress for ulcer prevention)-, See Instructions, # 1 each, Refills 0, Tot. Refills 0, Maintenance, see E Rx, 04/02/23 9:08:00 AM EST, tetraplegis-C 6 complete; ICD 10-G82.53, Supply Start Date: 04/02/23 Status: Ordered Quantity: 1.0 Unit: each Repeat number: 1 Memory foam hospital bed mattress Memory foam [facility] bed mattress, See Instructions, # 1 each, Refills 0, Tot. Refills 0, Maintenance, dx Tetraplegic G82.53 to prevent bed sores, 08/29/23 3:45:00 AM EDT, Supply Start Date: 08/29/23 Status: Ordered Quantity: 1.0 Unit: each Repeat number: 1 midodrine 2.5 mg oral tablet 2.5 mg, 1, tablet, By Mouth, 3 times a day, Refills 0, Maintenance, 10/07/21 2:57:00 PM EDT, Partial fill upon patient request if the prescription is for a schedule II opioid drug. Start Date: 10/07/21 Status: Ordered Repeat number: 1 Narcan 4 mg/0.1 mL nasal spray = 4 mg, Inhalation, Once, may repeat every 2 to 3 minutes until patient responds, # 2 each, 0 Refills, Soft Stop, 11/22/16 4:26:03 PM EDT, [facility]/pharmacy #[id number] Start Date: 11/22/16 Status: Ordered Quantity: 2.0 Unit: each Repeat number: 1 oxybutynin 5 mg oral tablet 1 tablet = 5 mg, By Mouth, 3 times a day, # 90 tablet, 11 Refills, Maintenance, 03/27/17 10:27:00 AM EST, Tablet, [facility] [place] Start Date: 03/27/17 Status: Ordered Quantity: 90.0 Unit: tablet Repeat number: 12 Power Erik Lift Power Erik Lift, See Instructions, # 1 units, Refills 0, Tot. Refills 0, Maintenance, Tetraplegia,01/28/14 3:17:19 PM EDT, Compound Start Date: 01/28/14 Status: Ordered Quantity: 1.0 Unit: Units Repeat number: 1 power wheel chair power wheel chair, See Instructions, # 1 each, Refills 0, Tot. Refills 0, Maintenance, T6 quadriplegic, 08/17/23 11:35:00 AM EDT, Supply Start Date: 08/17/23 Status: Ordered Quantity: 1.0 Unit: each Repeat number: 1 Indication: Quadriplegia, unspecified RLE Thigh High Flat Knit CC II 30-40 mm Hg Compression Stockings RLE Thigh High Flat Knit CC II 30-40 mm Hg Compression Stockings, See Instructions, # 2 each, Refills 1, Tot. Refills 1, Maintenance, Wear daily all day. Patient needs AK stocking on right due to DVTbehind knee. Dx: Edema, 782.3, 11/03/14 3:17:05 PM EDT Start Date: 11/03/14 Status: Ordered Quantity: 2.0 Unit: each Repeat number: 2 Semi-electric hospital bed with alternating air overlay Semi-electric hospital bed with alternating air overlay, See Instructions, # 1 units, Refills 0, Tot. Refills 0, Maintenance, Dx: Tetraplegia L.O.N. is lifetime, 01/22/17 3:55:27 PM EDT, Compound Start Date: 01/22/17 Status: Ordered Quantity: 1.0 Unit: Units Repeat number: 1 Senna 8.6 mg oral tablet 17.2 mg, 2, tablet, By Mouth, Daily, # 60 tablet, Refills 11, Tot. Refills 11, Maintenance, 10/10/21 4:05:00 PM EDT, Route to Pharmacy Electronically, [facility]/pharmacy #[id number] Tablet, 172, cm, 06/23/21 14:43:00 EST, Height, 79.38, kg, 05/11/20 10:46:00 EST, Dry Weight Start Date: 10/10/21 Stop Date: 10/05/22 Status: Ordered Quantity: 60.0 Unit: tablet Repeat number: 12 Senna 8.6 mg oral tablet 17.2 mg, 2, tablet, By Mouth, Daily, # 180 tablet, Refills 3, Tot. Refills 3, Maintenance, 06/20/23 4:29:00 PM EST, Route to Pharmacy Electronically, [facility]/pharmacy #[id number] Tablet, 172, cm, 05/30/23 15:52:00 EST, Height, 79.55, kg, 10/31/22 11:09:00 EDT, Dry Weight Start Date: 06/20/23 Status: Ordered Quantity: 180.0 Unit: tablet Repeat number: 4 tetraplagia tetraplagia, See Instructions, # 1 units, Refills 0, Tot. Refills 0, Maintenance, poor torso tone -ABDOMINAL BINDER TO WEAR 2 hours on, off during day prn only. off night, 11/03/14 3:18:38 PM EDT, Compound Start Date: 11/03/14 Status: Ordered Quantity: 1.0 Unit: Units Repeat number: 1 TETRAPLEGIA TETRAPLEGIA, See Instructions, # 1 units, Refills 0, Tot. Refills 0, Maintenance, POWER ERIK LIFT for patient transfers. Cannot use a manual lift. FAmily and picture engraver unable to operate the manual lift safely., 02/01/15 1:31:49 PM EDT, Compound Start Date: 02/01/15 Status: Ordered Quantity: 1.0 Unit: Units Repeat number: 1 Vitamin D3 2000 intl units oral tablet 2 tablet = 100 mcg, By Mouth, Daily, 0 Refills, Maintenance, 09/07/23 3:26:00 PM EDT, Partial fill upon patient request if the prescription is for a schedule II opioid drug. 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 pain in the anus and rectum , scrotum and penis and lower chest to perineum as well as legs Confirmed Active Cervical spinal cord injury Confirmed Active Chronic pain syndrome Confirmed Active Depression Confirmed Active Disturbance in sleep behavior Confirmed Active Limitation due to disability 1 Confirmed Active Drug or alcohol risk assessment 2 Confirmed Active YSABEL (generalized anxiety disorder) Confirmed Active Status post cervical spine surgery: C5-C7 anterior fusion Confirmed Active History of deep vein thrombophlebitis of lower extremity, right, 01/04/2007 Confirmed 01/04/07 Active Myelomalacia of cervical cord: 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 Confirmed Active Myofascial pain, regional Confirmed Active Neurogenic bladder Confirmed Active Neurogenic bowel Confirmed Active Obesity Confirmed Active Osteoporosis Confirmed Active Shoulder pain, right Confirmed Active Right shoulder pain Confirmed Active Encounter for annual wellness visit (AWV) in Medicare patient Confirmed Active Screening cholesterol level Confirmed Active Screening of cancer Confirmed Active Encounter for screening colonoscopy Confirmed Active Adult general medical exam Confirmed Active Sleep apnea Confirmed Active Sleep apnea Confirmed Active Chronic incomplete spastic tetraplegia Confirmed Active Spasticity, status post spinal cord injury Confirmed Active Spasticity Confirmed Active Tetraplegia, C6 complete, s/p diving injury at age 17 -> C6 burst fracture Confirmed Active Chronic incomplete tetraplegia Confirmed Active 1Oswestry Disability Index and [place] Back Pain Disability Scale not appropriate given tetraplegia. 2SOAPP-R: 28 on 10/06/2015 Social History Social History Type Response Smoking Status Former smoker, quit more than 30 days ago entered on: 06/23/21 Sex Sex Representation Male (finding) Patient Care team information Care Team Personnel Name: Rikki Fletcher DO Position: [facility] Physician - Primary Care Member Role: PCP Address: [address] [place] [address] [place] [address]- Telecom: Name: Leanna Justin [place] Position: [facility] Staff Member Role: Primary Care Nurse Name: Nichole Christine [place] Position: [facility] Staff Member Role: Primary Care Nurse Name: Hilda Conn MD, Tylor James Position: [facility] Anesthesiology MD Member Role: Lifetime Consulting Physician Address: [address] [place] [phone]- Telecom: Care Team Related Persons Name: BRUNO PUTNAM Insurance Providers Guarantor name: BRIAN INDY Health Plan Information #: 1 Payer: [facility] [employer]/ONE C[employer] Member Number: NA Policy Number: NA Group Number: [id number]
--- OUTSIDE RECORDS SUMMARY | 2024-07-07 17:57 | XMS_ITS | Encounter Summary ---
Author Organization [facility] Address [address] [place] [address] Care Team Providers Care Starch Crab Name Role Phone Unavailable Primary Care Provider Unavailabl e Encounter Details Date Type Department Care Team (Latest Contact Info) Description 06/06/2018 Abstract [facility] CONVERSIONS Dental, Provider, DDS Social History Tobacco [...] Description 07/23/2024 4:00 PM EDT Office Visit [facility] [address] [place] [phone] Kym Pedroza BDS [address] [place] [address] 12/08/2024 4:00 PM EDT Office Visit [facility] [address] [place] [id number] Orquidea Ruby [address] [place] [address] documented as of this encounter Visit Diagnoses Not on filedocumented in this encounter
--- OUTSIDE RECORDS SUMMARY | 2024-07-07 17:57 | XMS_ITS | Clinical Summary ---
Author Organization [facility] Facility Address [address] [address] Care Team Providers Care Processing Archivist Name Role Phone Rikki Fletcher Primary Care Provider [phone] Allergies No known active allergies Medications NON FORMULARY Apply topically 2 (two) times a day Active alendronate (FOSAMAX) 70 MG tablet Take 1 tablet by mouth 1 (one) time per week Active amphetamine-dext roamphetamine XR (ADDERALL XR) 20 MG 24 hr capsule Take 1 capsule by mouth 2 (two) times a day Active baclofen (LIORESAL) 10 MG tablet Take 0.5 tablets by mouth 3 (three) times a day Active Calcium Carbonate-Vitami n D (calcium-vitamin D) 500-200 MG-UNIT tablet Take 1 tablet by mouth 1 (one) time each day Active clonazePAM (KlonoPIN) 1 MG tablet Take 1 tablet by mouth 4 (four) times a day Active docusate sodium (COLACE) 100 MG capsule Take 1 capsule by mouth 2 (two) times a day Active DULoxetine (CYMBALTA) [address] capsule Take 1 capsule by mouth 1 (one) time each day Active lamoTRIgine (LaMICtal) 50 MG dispersible tablet Take 1 tablet by mouth 2 (two) times a day Active lidocaine (XYLOCAINE) 2 % jelly 1 Applicatorful 1 (one) time each day Active Naloxone HCl (Narcan) 4 MG/0.1ML liquid Acti ve OXcarbazepine (TRILEPTAL) 150 MG tablet Take 1 tablet by mouth 2 (two) times a day Active oxybutynin (DITROPAN) 5 MG tablet Take 1 tablet by mouth 3 (three) times a day Active polyethylene glycol (GLYCOLAX) 17 GM/SCOOP powder 1 packet by Other route 1 (one) time each day Active senna (SENOKOT) 8.6 MG tablet Take 3 tablets by mouth every other day Active silver sulfADIAZINE (SILVADENE, SSD) 1 % cream by Other route 1 (one) time each day Active Belbuca [address] 1 FILM UNDER TONGUE EVERY 12 HOURS FOR PAIN 08/12/19 Active cloNIDine (CATAPRES) 0.1 MG tablet 08/29/19 Active gabapentin (NEURONTIN) 300 MG capsule TAKE 1 CAPSULE BY MOUTH FOUR TIMES A DAY NEEDED FOR PAIN 07/06/19 22 Active hydrOXYzine (ATARAX) 50 MG tablet TAKE 1 TABLET BY MOUTH 3 TIMES A DAY FOR 30 DAYS NEEDED ANXIETY 06/24/19 Active ibuprofen (ADVIL,MOTRIN) 800 MG tablet Take 800 mg by mouth every 12 (twelve) hours if needed 08/12/19 22 Active ketoconazole (NIZORAL) 2 % shampoo APPLY TO SCALP AND FACE 2X/WK, LEAVE ON 5 MINUTES THEN WASH OFF 06/28/19 Active triamcinolone (KENALOG) 0.5 % cream APPLY TO AFFECTED AREA TWICE A DAY FOR 30 DAYS 08/24/19 22 Active Trintellix 10 MG tablet Take 1 tablet by mouth 1 (one) time each day 08/13/19 22 Active lisinopril 10 MG tabletIndication s:Essential hypertension,Lab ile essential hypertension Take 1 tablet (10 mg total) by mouth 1 (one) time each day 30 tablet 1 06/20/19 24 Active midodrine (PROAMATINE) 2.5 MG tablet TAKE 1 TABLET BY MOUTH 1 TIME DAILY 60 MINUTES BEFORE A MEAL 90 tablet 3 09/24/19 24 Active Active Problems Problem Noted Date Diagnosed Date Labile essential hypertension 08/18/2020 Essential hypertension 07/13/2020 Resolved Problems Problem Noted Date Diagnosed Date Resolved Date Benzodiazepine dependence 08/30/2021 Central pain syndrome 08/30/20212021 Cervical spinal cord injury 08/30/2021 08/30/2021 Chronic pain syndrome 08/30/20212021 Depressive disorder 08/30/2021 08/31/19 22 Disorder of inguinal region 08/30/2021 08/30/2021 Disturbance in sleep behavior 08/30/2021 08/30/2021 Ex-cigarette smoker 08/30/2021 08/31/19 Finding of activity of daily living 08/30/2021 08/30/2021 Overview (08/30/2021): Oswestry Disability Index and [place] Back Pain Disability Scale not appropriate given tetraplegia. H/O: Disorder 08/30/2021 08/30/2021 Overview (08/30/2021): Sleep-disordered breathing, demonstrated on sleep study October 31, 2006 and sleep study done September 02, 2005 at which time RDI was 25 reflecting 53 central apneas and 2 obstructive apneas as well as 5 mixed apneas without desaturation. History of surgical procedur e on cervical spine 08/30/2021 08/30/2021 Myelomalacia 08/30/2021 08/30/2021 Myofascial pain 08/30/2021 08/30/2021 Neurogenic urinary bladder 08/30/2021 0 08/30/2021 Neurogenic bowel 08/30/2021 08/30/2021 Obesity 08/30/2021 08/30/2021 Osteoporosis 08/30/2021 08/30/2021 Patient encounter status 08/30/2021 Overview (08/30/2021): SOAPP-R: 28 on 10/06/2015 Sleep apnea 08/30/2021 08/30/2021 Spasticity 08/30/2021 08/30/2021 Tetraplegia 08/30/2021 08/30/2021 History of thrombophlebitis 01/04/2007 08/30/2021 Immunizations Name Administration Dates Next Due Moderna SARS-COV-2 05/12/2021 Pfizer SARS-COV-2 08/26/2020,08/05/2020 Family History Medical History Relation Comments Hypertension Father Diabetes Mother Relation Status Comments Father Mother Social History Tobacco Use Types Packs/Day Years Used Date Smoking Tobacco: Former Smokeless Tobacco: Never Tobacco Cessation:Counseling Given: No Alcohol Use Standard Drinks/Week Comments Never 0 (1 standard drink = 0.6 oz pur e alcohol) Sex and Gender Information Value Date Recorded Sex Assigned at Not on file Legal Sex Male 4:57 PM EST Gender Identity Not on file Sexual Orientation Not on file Last Filed Vital Signs Vital Sign Reading Time Taken Comments Blood Pressure 110/82 12/06/2022 3:53 PM EDT Pulse 82 12/06/2022 3:53 PM EDT Temperature - - Respiratory Rate - - Oxygen Saturation 96% 12/06/2022 3:53 PM EDT Inhaled Oxygen Concentration - - Weight 79.4 kg (175 lb) 12/06/2022 3:53 PM EDT Height 167.6 cm (5' 6 ) 12/06/2022 3:53 PM EDT Body Mass Index 28.25 12/06/2022 3:53 PM EDT Plan of Treatment Health Maintenance Due Date Last Done Comments Pneumococcal Vaccine: Pediat rics (0 to 5 Years) and At-Risk Patients (6 to 64 Years) (1 of 2 - PCV) 02/06/1984 Hepatitis B Vaccine (1 of 3 - 19+ 3-dose series) 02/05 Influenza Vaccine (#1) 2024 Insurance [facility] ([id number]) [facility] ([id number]) Care Teams Processing Archivist Relationship Specialty Start Date End Date Rikki Fletcher DO [address] [place] [address] PCP - General 05/17/20
--- OUTSIDE RECORDS SUMMARY | 2024-07-07 17:57 | XMS_ITS | Continuity of Care Document ---
Author Organization [facility] Address [address] [place] [address]- Care Team Providers Care Resident Hall Director Name Role Phone Rikki Fletcher DO Primary Care Physician Encounter [facility] Date(s): 05/14/24 - 06/13/24 [facility] [address] [place] [id number] Encounter [...] tablet, 0 Refills, Maintenance, 04/14/24 12:51:00 PMEST, [facility]/pharmacy #[id number], Partial fill upon patient request if the [...] 12:26:00 PM EDT, Route to Pharmacy Electronically, [facility]/pharmacy #[id number], 172, cm, 11/22/23 15:01:00 EDT, Height, [...] Refills, Maintenance, spasticity, 04/14/24 12:53:00 PM EST, [facility]/pharmacy #[id number], Fill when it's due, 172, cm, 02/19/24 15:33:00 EDT, Height, 81, kg, 09/05/23 16:09:00 EDT, Dry Weight Start Date: 04/14/24 Status: Ordered Quantity: 60.0 Unit: tablet Repeat number: 4 cloNIDine 0.1 mg oral tablet 1, tablet, By Mouth, 2 times a day, # 180 tablet, Refills 1, Tot. Refills 1, Maintenance, 05/17/24 11:39:00 AM EST, Route to Pharmacy Electronically, [facility]/pharmacy #[id number], 172, cm, 02/19/24 15:33:00 EDT, Height, [...] 12:34:00 PM EST, 01/14/24 12:34:00 PM EDT, [facility]/pharmacy #[id number], Partial fill upon patient request if [...] EST, 01/14/24 12:37:00 PM EDT, EC Capsule, [facility]/pharmacy #[id number], 172, cm, 11/22/23 15:01:00 EDT, Height, 81, kg, 09/05/23 16:09:00 EDT, Dry Weight Start Date: 01/14/24 Stop Date: 07/12/24 Status: Ordered Quantity: 90.0 Unit: capsule Repeat number: 2 Econazole Nitrate 1% topical cream 1 application, Topically, 2 times a day, USE SPARINGLY., # 30 Gm, 0 Refills, [facility] STORE [id number], 30, APPLY 1 APPLICATION TOPICALLY 2 TIMES A DAY,USE SPARINGLY, 172, cm, 01/13/21 14:18:00 EDT, Height, 79.38, kg, 05/11/20 10:46:00 EST, Dry Weight Start Date: 04/05/21 Status: Ordered Quantity: 30.0 Unit: g Repeat number: 1 Flonase 50 mcg/inh nasal spray 2 sprays, Nares, Both, Daily at bedtime, 0 Refills, Maintenance, 10/30/22 12:59:00 PM EDT, [place], Partial fill upon patient request if the [...] 5 Refills, Maintenance, 10/23/23 5:27:00 PM EDT, [email or web address] STORE [id number], 30, TAKE 17 GM BY MOUTH DAILY:DISSOLVE [...] 3:02:00 PM EDT, Route to Pharmacy Electronically, [facility]/pharmacy #[id number], Partial fill upon patient request if the [...] Memory foam hospital bed mattress Memory foam [facility] bed mattress, See Instructions, # 1 each, [...] Refills, Soft Stop, 11/22/16 4:26:03 PM EDT, [facility]/pharmacy #[id number] Start Date: 11/22/16 Status: Ordered Quantity: 2.0 Unit: each Repeat number: 1 oxybutynin 5 mg oral tablet 1 tablet = 5 mg, By Mouth, 3 times a day, # 90 tablet, 11 Refills, Maintenance, 03/27/17 10:27:00 AM EST, Tablet, [facility] [place] Start Date: [...] 4:05:00 PM EDT, Route to Pharmacy Electronically, [facility]/pharmacy #[id number] Tablet, 172, cm, 06/23/21 14:43:00 EST, Height, 79.38, kg, 05/11/20 10:46:00 EST, Dry Weight Start Date: 10/10/21 Stop Date: 10/05/22 Status: Ordered Quantity: 60.0 Unit: tablet Repeat number: 12 Senna 8.6 mg oral tablet 17.2 mg, 2, tablet, By Mouth, Daily, # 180 tablet, Refills 3, Tot. Refills 3, Maintenance, 06/20/23 4:29:00 PM EST, Route to Pharmacy Electronically, [facility]/pharmacy #[id number] Tablet, 172, cm, 05/30/23 15:52:00 EST, [...] Cannot use a manual lift. 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 safely., [...] Team Personnel Name: Rikki Fletcher DO Position: [facility] Physician - Primary Care Member Role: PCP Address: [address] [place] [address] [place] [address]- Telecom: Name: Leanna Justin [place] Position: [facility] Office Staff Member Role: Primary Care Nurse Name: Nichole Christine [place] Position: [facility] Office Staff Member Role: Primary Care Nurse Name: Hilda Conn MD, Tylor James Position: [facility] Anesthesiology MD Member Role: Lifetime Consulting Physician Address: [address] [place] [address]- Telecom: Care Team Related Persons Name: BRUNO PUTNAM Insurance Providers Guarantor name: BRIAN INDY Health Plan Information #: 1 Payer: [facility] CARE ALLIANCE/ONE CARE Member Number: NA Policy Number: NA Group Number: NA
--- OUTSIDE RECORDS SUMMARY | 2024-07-07 17:57 | XMS_ITS | Continuity of Care Document ---
Author Organization [facility] Address [address] [place] [address]- Care Team Providers Care Tank Builder Name Role Phone Rikki Fletcher DO Primary Care Physician Encounter [facility] Date(s): 05/27/24 - 06/26/24 [facility] [address] [place] [id number] Encounter Type: Triage Allergies, Adverse Reactions, Alerts [...] tablet, 0 Refills, Maintenance, 04/14/24 12:51:00 PMEST, [facility]/pharmacy #[id number], Partial fill upon patient request if the [...] 12:26:00 PM EDT, Route to Pharmacy Electronically, [facility]/pharmacy #[id number], 172, cm, 11/22/23 15:01:00 EDT, Height, [...] Refills, Maintenance, spasticity, 04/14/24 12:53:00 PM EST, [facility]/pharmacy #[id number], Fill when it's due, 172, cm, 02/19/24 15:33:00 EDT, Height, 81, kg, 09/05/23 16:09:00 EDT, Dry Weight Start Date: 04/14/24 Status: Ordered Quantity: 60.0 Unit: tablet Repeat number: 4 cloNIDine 0.1 mg oral tablet 1, tablet, By Mouth, 2 times a day, # 180 tablet, Refills 1, Tot. Refills 1, Maintenance, 05/17/24 11:39:00 AM EST, Route to Pharmacy Electronically, [facility]/pharmacy #[id number], 172, cm, 02/19/24 15:33:00 EDT, Height, [...] 12:34:00 PM EST, 01/14/24 12:34:00 PM EDT, [facility]/pharmacy #[id number], Partial fill upon patient request if [...] EST, 01/14/24 12:37:00 PM EDT, EC Capsule, [facility]/pharmacy #[id number], 172, cm, 11/22/23 15:01:00 EDT, Height, 81, kg, 09/05/23 16:09:00 EDT, Dry Weight Start Date: 01/14/24 Stop Date: 07/12/24 Status: Ordered Quantity: 90.0 Unit: capsule Repeat number: 2 Econazole Nitrate 1% topical cream 1 application, Topically, 2 times a day, USE SPARINGLY., # 30 Gm, 0 Refills, [facility] STORE [id number], 30, APPLY 1 APPLICATION TOPICALLY 2 TIMES A DAY,USE SPARINGLY, 172, cm, 01/13/21 14:18:00 EDT, Height, 79.38, kg, 05/11/20 10:46:00 EST, Dry Weight Start Date: 04/05/21 Status: Ordered Quantity: 30.0 Unit: g Repeat number: 1 Flonase 50 mcg/inh nasal spray 2 sprays, Nares, Both, Daily at bedtime, 0 Refills, Maintenance, 10/30/22 12:59:00 PM EDT, [place], Partial fill upon patient request if the [...] 5 Refills, Maintenance, 10/23/23 5:27:00 PM EDT, [facility] STORE [id number], 30, TAKE 17 GM BY MOUTH DAILY:DISSOLVE [...] 3:02:00 PM EDT, Route to Pharmacy Electronically, [facility]/pharmacy #[id number], Partial fill upon patient request if the [...] Memory foam hospital bed mattress Memory foam [facility] bed mattress, See Instructions, # 1 each, [...] Refills, Soft Stop, 11/22/16 4:26:03 PM EDT, [facility]/pharmacy #[id number] Start Date: 11/22/16 Status: Ordered Quantity: 2.0 Unit: each Repeat number: 1 oxybutynin 5 mg oral tablet 1 tablet = 5 mg, By Mouth, 3 times a day, # 90 tablet, 11 Refills, Maintenance, 03/27/17 10:27:00 AM EST, Tablet, [facility] - [place] Start [...] 4:05:00 PM EDT, Route to Pharmacy Electronically, [facility]/pharmacy #[id number] Tablet, 172, cm, 06/23/21 14:43:00 EST, Height, 79.38, kg, 05/11/20 10:46:00 EST, Dry Weight Start Date: 10/10/21 Stop Date: 10/05/22 Status: Ordered Quantity: 60.0 Unit: tablet Repeat number: 12 Senna 8.6 mg oral tablet 17.2 mg, 2, tablet, By Mouth, Daily, # 180 tablet, Refills 3, Tot. Refills 3, Maintenance, 06/20/23 4:29:00 PM EST, Route to Pharmacy Electronically, [facility]/pharmacy #[id number] Tablet, 172, cm, 05/30/23 15:52:00 EST, [...] Cannot use a manual lift. 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 safely., [...] Team Personnel Name: Rikki Fletcher DO Position: [facility] Physician - Primary Care Member Role: PCP Address: [address] [place] [address] [place] [address]- Telecom: Name: Leanna Justin [place] Position: [facility] Office Staff Member Role: Primary Care Nurse Name: Nichole Christine MA Position: [facility] Office Staff Member Role: Primary Care Nurse Name: Hilda Conn MD, Tylor James Position: [facility] Anesthesiology MD Member Role: Lifetime Consulting Physician Address: [address] [place] [address]- Telecom: Care Team Related Persons Name: BRUNO PUTNAM Insurance Providers Guarantor name: BRIAN PUTNAM Health Plan Information #: 1 Payer: NA Member Number: NA Policy Number: NA Group Number: NA Health Plan Information #: 2 Payer: [facility] CARE ALLIANCE/[facility] CARE Member Number: NA Policy Number: NA Group Number: NA
== END 2024-07-07 15:58 | disposition home or self-care (01) ==
PROVIDERS: PCP Family Medicine; Visit Provider Nurse Practitioner Family
DX: G82.50 Quadriplegia, unspecified (principal); G89.4 Chronic pain syndrome; M79.18 Myalgia, other site; Z79.891 Long term (current) use of opiate analgesic; G89.29 Other chronic pain; Z98.1 Arthrodesis status; S14.106A Unspecified injury at C6 level of cervical spinal cord, initial encounter
CPT/HCPCS: 99214; G2211

== ENCOUNTER → 2024-07-07 15:05 | Outpatient (BNVA) | payer OTHER, SELFPAY | PROVIDERS: PCP Family Medicine; Visit Provider Nurse Practitioner Family | DX: G82.54 Quadriplegia, C5-C7 incomplete (principal); G89.4 Chronic pain syndrome; M79.18 Myalgia, other site; S24.101S Unspecified injury at T1 level of thoracic spinal cord, sequela; X58.XXXS Exposure to other specified factors, sequela; Z79.891 Long term (current) use of opiate analgesic; Z51.81 Encounter for therapeutic drug level monitoring | CPT/HCPCS: 99212 ==

== ENCOUNTER 2024-09-08 15:45 | Outpatient (AMB) | payer OTHER, SELFPAY ==
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
[2024-09-08 16:07] VITALS: BP 145/94; PULSE 73; O2SAT 99; BMI 29.0
--- OUTSIDE RECORDS SUMMARY | 2024-09-08 17:15 | XMS_ITS | Clinical Summary ---
Author Organization [facility] Facility Address [address] [address] Care Team Providers Care Supervisor Corduroy Cutting Name Role Phone Rikki Fletcher Primary Care Provider [phone] Allergies No known active allergies Medications NON [...] 08/30/2021 History of thrombophlebitis 01/04/2007 08/30/2021 Immunizations Immunization Administration Dates Next Due Moderna SARS-COV-2 05/12/2021 [...] Health Maintenance Due Date Last Done Comments Hepatitis B Vaccine (1 of 3 - 19+ 3-dose series) 02/05 Pneumococcal Vaccine: Peds ( 0 to 5 Years) and At-Risk Patients (6 to 49 Years) (1 of 2 - PCV) 1997 Influenza Vaccine (Season Ended) [address] [place] [address] ([id number]) [facility] ([id number]) [place] [id number] Care Teams Supervisor Corduroy Cutting Relationship Specialty Start Date End Date Rikki Fletcher DO [address] [place] [address] PCP - General 05/17/20
--- OUTSIDE RECORDS SUMMARY | 2024-09-08 17:15 | XMS_ITS | Encounter Summary ---
Author Organization [employer] [facility] Address [address] [facility] 7t [place] [address] Care Team Providers Care Account Manager Forest Service Name Role Phone Unavailable Primary Care Provider Unavailabl e Encounter Details Date Type Department Care Team (Latest Contact Info) Description 06/06/2018 Abstract [facility] Dental, Provider, DDS Social History Tobacco [...] Care Team (Late st Contact Info) Description 09/22/2024 4:00 PM EDT Office Visit [facility] [address] [place] [address] Kym Pedroza BDS [address] [place] [address] 12/08/2024 4:00 PM EDT Office Visit [facility] [address] [place] [address] [employer] Ruby [address] [place], [place] [phone] documented as of this encounter Visit Diagnoses Not on filedocumented in this encounter
--- OUTSIDE RECORDS SUMMARY | 2024-09-08 17:15 | XMS_ITS | Encounter Summary ---
Author Organization [employer] [facility] Address [address] [facility] [address] [place] [address] Care Team Providers Care Acrobatic Rigger Name Role Phone Unavailable Primary Care Provider Unavailabl e Encounter Details Date Type Department Care Team (Latest Contact Info) Description 10/12/2020 Abstract [facility] CONVERSIONS Dental, Provider, DDS Social History [...] Description 09/22/2024 4:00 PM EDT Office Visit [facility] [address] [place] [address] Kym Pedroza BDS [address] [place] [address] 12/08/2024 4:00 PM EDT Office Visit [facility] [address] [place] [address] [employer] [facility] [address] [place], [place] [phone] documented as of this encounter Visit Diagnoses Not on filedocumented in this encounter
--- OUTSIDE RECORDS SUMMARY | 2024-09-08 17:15 | XMS_ITS | Clinical Summary ---
Author Organization [employer] Address [address] [facility] [address] [place] [address] Care Team Providers Care Geriatric Aide Name Role Phone Unavailable Primary Care Provider Unavailabl e Allergies No known active allergies Medications Amphetamine-De xtroamphetamin e (ADDERALL PO) Take by mouth. Activ e nitrofurantoin (Macrodantin) 50 MG capsule Take 1 capsule by mouth every 6 (six) hours. Active Ergocalciferol (Vitamin D2) 50 MCG (2000 UT) tablet take 1 capsule ([id number]) by oral route every week Active oxyCODONE [...] Encounters Date Type Department Care Team Description 08/26/2024 Telephone [facility] [address] [place] [id number] Kym Pedroza BDS crowns appt 07/01/2024 4:00 PM EST Office Visit [facility] [address] [place] [address] Kym Pedroza BDS from Last 3 Months Social History Tobacco [...] Description 09/22/2024 4:00 PM EDT Office Visit [facility] [address] [place], [place] [phone] Kym Pedroza BDS [address] [place], [place] [phone] 12/08/2024 4:00 PM EDT Office Visit [facility] [address] [place] [address] [employer] [facility] [address] [place], [place] [phone] Health Maintenance Due Date Last Done Comments [...] - 19+ 3-dose series) 1997 COVID-19 Vaccine ( - 2023-2 5 season) 2024 05/12/2021, 08/26/2020, 08/05/2020 [...] ESTABLISHED PATIENT Routine 07/01/2024 4:00 PM EST PROPHYLAXIS - ADULT Routine 06/04/2024 4 :00 PM EST from Last 3 Months or Most Recently Relevant to Health Maintenance Insurance DENTAL - [facility] * Guarantor: Aki Leal Account Type Relation to Patient Date of Phone Billing Address Personal/Family Self [address] [place]
--- OUTSIDE RECORDS SUMMARY | 2024-09-08 17:15 | XMS_ITS | Encounter Summary ---
Author Organization [facility] Address [address] [place] [address] Care Team Providers Care Clearance Rep Name Role Phone Rikki Flethcer DO Primary Care Provider [phone] Encounter Details Date Type Department Care Team (Latest Contact Info) Description 07/17/[address] [facility] - Main Lab [address] [facility] [place] [address] Roberto Rizvi MD [address] [place] [address] Neuromuscular dysfunction of bladder, unspecified Social History Tobacco Use Types Packs/Day Years Used Date Smoking Tobacco: Never Assessed Sex and Gender Information Value Date Recorded Sex Assigned at Not on file Legal Sex Male 8:48 AM EST Gender Identity Not on file Sexual Orientation Not on file documented as of this encounter Plan of Treatment Not on file documented as of this encounter Procedures Procedure Name Priority Date/Time Associated Diagnosis Comments PROTHROMBIN TIME WITH INR Routine 07/17/2024 3:55 PM EDT Neuromuscular dysfunction of bladder, unspecified COMPLETE BLOOD COUNT Routine 07/17/2024 3:55 PM EDT Neuromuscular dysfunction of bladder, unspecified CULTURE URINE Routine 07/17/2024 3:55 PM EDT Neuromuscular dysfunction of bladder, unspecified documented in this encounter Results * (ABNORMAL) Culture urine (07/17/2024 3:55 PM EDT) Culture, Urine >100,000 CFU/mL Klebsiella pneumoniae ssp pneumoniae(A) KELSY 07/19/2024 11:00 AM EDT [facility] ([facility] [place] Comment: This is an edited result. Previous organism was Gram negative bacilli on 07/18/2024 at 1420 EDT. Urine Urine specimen obtained by clean catch procedure / Unknown 07/17/2024 3:55 PM EDT 07/17/2024 6:52 PM EDT Narrative Organism Antibiotic Method Susceptibility Klebsiella pneumoniae ssp pneumoniae Amoxicillin/Clavulanate KELSY <=2 ug/ml: Susceptible Klebsiella pneumoniae ssp pneumoniae Ampicillin/Sulbactam KELSY 4 ug/ml: Susceptible Klebsiella pneumoniae ssp pneumoniae Piperacillin/Tazobactam KELSY <=4 ug/ml: Susceptible Klebsiella pneumoniae ssp pneumoniae Cefazolin (Urine) KELSY 4 ug/ml: Susceptible Klebsiella pneumoniae ssp pneumoniae Cefoxitin KELSY <=4 ug/ml: Susceptible Klebsiella pneumoniae ssp pneumoniae Ceftazidime KELSY <=0.5 ug/ml: Susceptible Klebsiella pneumoniae ssp pneumoniae Ceftriaxone KELSY <=0.25 ug/ml: Susceptible Klebsiella pneumoniae ssp pneumoniae Cefepime KELSY <=0.12 ug/ml: Susceptible Klebsiella pneumoniae ssp pneumoniae Meropenem KELSY <=0.25 ug/ml: Susceptible Klebsiella pneumoniae ssp pneumoniae Amikacin KELSY <=1 ug/ml: Susceptible Klebsiella pneumoniae ssp pneumoniae Gentamicin KELSY <=1 ug/ml: Susceptible Klebsiella pneumoniae ssp pneumoniae Ciprofloxacin KELSY <=0.06 ug/ml: Susceptible Klebsiella pneumoniae ssp pneumoniae Levofloxacin KELSY <=0.12 ug/ml: Susceptible Klebsiella pneumoniae ssp pneumoniae Nitrofurantoin KELSY 32 ug/ml: Susceptible Klebsiella pneumoniae ssp pneumoniae Trimethoprim/Sulfamethoxazo le KELSY <=20 ug/ml: Susceptible us Roberto Rizvi MD LAB MICROBIOLOGY - GENERAL ORDER MASSIEL Final Result [facility] [address] [place] [address], * Prothrombin time with INR (07/17/2024 3:55 PM EDT) Protime 11.7 10.6 - 13.9 sec LAB COAGULATION METHOD 07/17/2024 7:42 PM EDT [facility] INR 0.9 LAB COAGULATION METHOD 07/17/2024 7:42 PM EDT [facility] Blood Venous blood specimen / Unknown 07/17/2024 3:55 PM EDT 07/17/2024 6:52 PM EDT us Roberto Rizvi MD LAB BLOOD ORDERABLES Final Resul t [facility] [address] [place] [address], * (ABNORMAL) Complete blood count (07/17/2024 3:55 PM EDT) WBC 10.4 4.8 - 10.8 K/mcL LAB HEMETOLOGY METHOD 07/17/2024 7:37 PM EDT [facility] RBC 4.80 4.50 - 5.50 M/mcL LAB HEMETOLOGY METHOD 07/17/2024 7:37 PM EDT [facility] Hemoglobin 13.6 13.5 - 17.5 g/dL LAB HEMETOLOGY METHOD 07/17/2024 7:37 PM EDT [facility] Hematocrit 40.4(L) 42.0 - 54.0 % LAB HEMETOLOGY METHOD 07/17/2024 7:37 PM EDT [facility] MCV 84.3 79.0 - 98.0 FL LAB HEMETOLOGY METHOD 07/17/2024 7:37 PM EDT [facility] MCH 28.4 27.0 - 32.0 pcg LAB HEMETOLOGY METHOD 07/17/2024 7:37 PM EDT [facility] MCHC 33.7 32.0 - 37.0 g/dL LAB HEMETOLOGY METHOD 07/17/2024 7:37 PM EDT [facility] RDW 12.2 11.0 - 15.0 % LAB HEMETOLOGY METHOD 07/17/2024 7:37 PM EDT [facility] Platelets 322 130 - 400 K/mcL LAB HEMETOLOGY METHOD 07/17/2024 7:37 PM EDT [facility] MPV 10.5 7.0 - 11.0 FL LAB HEMETOLOGY METHOD 07/17/2024 7:37 PM EDT [facility] NRBC 0.0 <1.0 % LAB HEMETOLOGY METHOD 07/17/2024 7:37 PM EDT [facility] NRBC Absolute 0.00 <0.10 K/mcL LAB HEMETOLOGY METHOD 07/17/2024 7:37 PM EDT [facility] Blood Venous blood specimen / Unknown 07/17/2024 3:55 PM EDT 07/17/2024 6:52 PM EDT us Roberto Rizvi MD LAB BLOOD ORDERABLES Final Resul t [facility] [address] [place] [address], documented in this encounter Visit Diagnoses Diagnosis Neuromuscular dysfunction of bladder, unspecified documented in this encounter Care Teams Clearance Rep Relationship Specialty Start Date End Date Rikki Fletcher DO [address] [place] [address] PCP - General Family Medicine 07/18/24 documented as of this encounter
--- OUTSIDE RECORDS SUMMARY | 2024-09-08 17:15 | XMS_ITS | Clinical Summary ---
Author Organization [facility] Address [address] [place] [address] Phone Care Team Providers Care Chief Librarian Extension Department Name Role Phone Rikki Fletcher DO Primary Care Provider [phone] Encounters Date Type Department Care Team Description 07/17/[address] [facility] - Main Lab [address] [facility] [place] [address] Roberto Rizvi MD Neuromuscular dysfunction of bladder, unspecified from Last 3 Months Social History Tobacco Use Types Packs/Day Years Used Date Smoking Tobacco: Never Assessed Sex and Gender Information Value Date Recorded Sex Assigned at Not on file Legal Sex Male 8:48 AM EST Gender Identity Not on file Sexual Orientation Not on file Plan of Treatment Health Maintenance Due Date Last Done Comments DTaP,Tdap,and Td Vaccines (1 - Tdap) 1997 Hepatitis B Vaccines (1 of 3 - 19+ 3-dose series) 1997 COVID-19 Vaccine ( - 2023-2 5 season) 2024 Cholesterol Screening (Lipid Panel) 07/18/2024 Colorectal Cancer Screening: Colonoscopy 07/18/2024 Depression Screening 07/18/2024 HIV Screening 07/18/2024 Hepatitis C Screening 07/18/2024 Social Influencers of Health Screening 07/18/2024 Influenza Vaccine (Season Ended) 2025 HIB Vaccines Aged Out No longer eligi [...] on patient's age to complete this topic MMR Vaccines Aged Out No longer eligi ble based on patient's age to complete this topic Meningococcal ACWY Vaccine Aged Out N o longer eligible based on patient's age to complete this topic Meningococcal B Vaccine Aged Out No l onger eligible based on patient's age to complete this topic Pneumococcal Vaccine: Pediat rics (0 to 5 Years) and At-Risk Patients (6 to 64 Years) Aged Out No longer eligible b ased on patient's age to complete this topic RSV Immunization Patients Un pratibha 20 months Aged Out No longer eligible b ased on patient's age to complete this topic Varicella Vaccines Aged Out No longer eligible based on patient's age to complete this topic Procedures Procedure Name Priority Date/Time Associated Diagnosis Comments PROTHROMBIN TIME WITH INR Routine 07/17/2024 3:55 PM EDT Neuromuscular dysfunction of bladder, unspecified COMPLETE BLOOD COUNT Routine 07/17/2024 3:55 PM EDT Neuromuscular dysfunction of bladder, unspecified CULTURE URINE Routine 07/17/2024 3:55 PM EDT Neuromuscular dysfunction of bladder, unspecified from Last 3 Months Results * Prothrombin time with INR (07/17/2024 3:55 PM EDT) Protime 11.7 10.6 - 13.9 sec LAB COAGULATION METHOD 07/17/2024 7:42 PM EDT [facility] INR 0.9 LAB COAGULATION METHOD 07/17/2024 7:42 PM EDT [facility] Blood Venous blood specimen / Unknown 07/17/2024 3:55 PM EDT 07/17/2024 6:52 PM EDT us Roberto iRzvi MD LAB BLOOD ORDERABLES Final Resul t [facility] [address] [place] [address], * (ABNORMAL) Complete blood count (07/17/2024 3:55 PM EDT) WBC 10.4 4.8 - 10.8 K/mcL LAB HEMETOLOGY METHOD 07/17/2024 7:37 PM EDT [facility] RBC 4.80 4.50 - 5.50 M/mcL LAB HEMETOLOGY METHOD 07/17/2024 7:37 PM EDT [facility] Hemoglobin 13.6 13.5 - 17.5 g/dL LAB HEMETOLOGY METHOD 07/17/2024 7[facility] Hematocrit 40.4(L) 42.0 - 54.0 % LAB HEMETOLOGY METHOD 07/17/2024 7:37 [facility] MCV 84.3 79.0 - 98.0 FL LAB HEMETOLOGY METHOD 07/17/2024 7:37 [facility] MCH 28.4 27.0 - 32.0 pcg LAB HEMETOLOGY METHOD 07/17/2024 7:37 [facility] MCHC 33.7 32.0 - 37.0 g/dL LAB HEMETOLOGY METHOD 07/17/2024 7:37 PM [facility] RDW 12.2 11.0 - 15.0 % LAB HEMETOLOGY METHOD 07/17/2024 7:37 PM [facility] Platelets 322 130 - 400 K/mcL LAB HEMETOLOGY METHOD 07/17/2024 7:37 PM [facility] MPV 10.5 7.0 - 11.0 FL LAB HEMETOLOGY METHOD 07/17/2024 7:37 PM [facility] NRBC 0.0 <1.0 % LAB HEMETOLOGY METHOD 07/17/2024 7:37 PM [facility] NRBC Absolute 0.00 <0.10 K/mcL LAB HEMETOLOGY METHOD 07/17/2024 7:37 PM [facility] Blood Venous blood specimen / Unknown 07/17/2024 3:55 PM EDT 07/17/2024 6:52 PM EDT us Roberto Rizvi MD LAB BLOOD ORDERABLES Final Resul t [facility] [address] [place] [address], [place] [phone] * (ABNORMAL) Culture urine (07/17/2024 3:55 PM EDT) Culture, Urine >100,000 CFU/mL Klebsiella pneumoniae ssp pneumoniae(A) KELSY 07/19/2024 11:00 AM EDT [facility] ([facility] Comment: This is an edited result. [...] MICROBIOLOGY - GENERAL ORDER MASSIEL Final Result [facility] ([facility]) [facility] [address] [place] [address], [place] [phone] from Last 3 Months Insurance [facility] [place] [id number] Care Teams Chief Librarian Extension Department Relationship Specialty Start Date End Date Rikki Fletcher DO [address] [place], [place] PCP - General Family Medicine 07/18/24
--- OUTSIDE RECORDS SUMMARY | 2024-09-08 17:15 | XMS_ITS | Encounter Summary ---
Author Organization [employer] [facility] Address [address] [facility] 7[address] [place] [address] Care Team Providers Care Svp Business Development Name Role Phone Unavailable Primary Care Provider Unavailabl e Reason for Visit * Reason Onset Date Comments crowns appt 08/26/2024 Encounter Details Date Type Department Care Team (Late st Contact Info) Description 08/26/2024 Telephone [facility] [address] [place] [phone] Kym Pedroza, BDS [address] [place] [address] [phone] crowns appt Social History Tobacco Use Types Packs/Day Years Used Date Smoking Tobacco: Former Cigarettes Smokeless Tobacco: Never Sex and Gender Information Value Date Recorded Sex Assigned at Male 03/06/2022 10:23 AM EDT Legal Sex Male 10:23 AM EDT Gender Identity Male 03/06/2022 10:23 AM EDT Sexual Orientation Choose not to disclose 2021 10:23 AM EDT documented as of this encounter Miscellaneous Notes * Telephone Encounter - Charles Fay - 08/26/2024 4:04 PM EDT Patient is requesting an appt for their crowns. Patient is unavailable to answer the phone in the morning so calling in the afternoon is best. ER documented in this encounter Plan of Treatment Upcoming Encounters Date Type Department Care Team (Late st Contact Info) Description 09/22/2024 4:00 PM EDT Office Visit [facility] [address] [place] [address] [phone] Kym Pedroza, BDS [address] [place] [address] [phone] 12/08/2024 4:00 PM EDT Office Visit [facility] [address] [place] [address] Orquidea Ruby [address] [place] [phone] documented as of this encounter Visit Diagnoses Not on filedocumented in this encounter
== END 2024-09-08 16:06 | disposition home or self-care (01) ==
LOC: HO.PMC 15:45
PROVIDERS: PCP Family Medicine; Visit Provider Nurse Practitioner Family
DX: G89.4 Chronic pain syndrome (principal); G82.50 Quadriplegia, unspecified; M79.18 Myalgia, other site; Z79.891 Long term (current) use of opiate analgesic; G89.29 Other chronic pain; Z98.1 Arthrodesis status; S14.106A Unspecified injury at C6 level of cervical spinal cord, initial encounter
CPT/HCPCS: 99214; G2211

== ENCOUNTER → 2024-09-08 15:45 | Outpatient (BNVA) | payer OTHER, SELFPAY | PROVIDERS: PCP Family Medicine; Visit Provider Nurse Practitioner Family | DX: G82.50 Quadriplegia, unspecified (principal); G89.4 Chronic pain syndrome; M79.18 Myalgia, other site; F11.90 Opioid use, unspecified, uncomplicated; S14.106A Unspecified injury at C6 level of cervical spinal cord, initial encounter; X58.XXXA Exposure to other specified factors, initial encounter; Y93.9 Activity, unspecified; Y92.9 Unspecified place or not applicable; Y99.9 Unspecified external cause status; Z51.81 Encounter for therapeutic drug level monitoring; Z98.1 Arthrodesis status | CPT/HCPCS: 99212 ==

== ENCOUNTER 2024-11-03 15:54 | Outpatient (AMB) | payer OTHER, SELFPAY ==
--- OUTSIDE RECORDS SUMMARY | 2024-11-03 15:56 | XMS_ITS | Encounter Summary ---
Author Organization [employer] Address [address] [facility] [address] [place] [address] Care Team Providers Care Technical Sme Name Role Phone Unavailable Primary Care Provider Unavailabl e Reason for Visit * Reason Onset Date Comments temp crown fell off 09/23/2024 Encounter Details Date Type Department Care Team (Late st Contact Info) Description 09/23/2024 Telephone [facility] [address] [place] [phone] Kym Pedroza BDS [address] [place] [address] temp crown fell off Social History Tobacco Use Types Packs/Day Years Used Date Smoking Tobacco: Former Cigarettes Smokeless Tobacco: Never Alcohol Use Standard Drinks/Week Comments Never 0 [...] encounter Miscellaneous Notes * Telephone Encounter - Cynthia Willett - 09/23/2024 12:41 PM EDT Patient called in stating that temp crown fell off. They are trying to get an appt to recement. Full on PAR side. Please reach out to patient documented in this encounter Plan of Treatment Upcoming Encounters Date Type Department Care Team (Late st Contact Info) Description 12/22/2024 4:00 PM EDT Office Visit [facility] [address] [place] [phone] Orquidea Ruby [address] [place] [address] [place] [address] documented as of this encounter Visit Diagnoses Not on filedocumented in this encounter
--- OUTSIDE RECORDS SUMMARY | 2024-11-03 15:56 | XMS_ITS | Patient Health Record ---
Author Organization [facility] Address [address] [place] [phone] Support Name Relationship Address Phone INDYBESSIEIN Guarantor Unknown [phone] Reason For Referral No Information Medications Medication SIG (Take, Route, Frequency, Duration) Notes Start Date End Date Status DULoxetine HCl 60 MG 1 capsule Orally On ce a day Active Fosamax Active LaMICtal Active Lisinopril 10 MG 1 tablet Orally Once a day Active Methadone HCl 1 tablet 3 tabs qd Active Narcan as directed Nasally Active oxyBUTYnin nasal spray Transdermal Active oxyCODONE HCl 10 MG 1 tablet as needed O rally 1 tab Active Senna Active Amphetamine-Dextroamphetam ine 20 MG 1 tablet Orally Twice a day Active Vitamin D Active Calcium Active Social History Tobacco Use: Social History Observation Description Date Details (start date - stop date) Former Smoker NA - NA Tobacco Use/Smoking Question Answer Notes Are you a former smoker How long has it been since you last smoked? 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 Plan Of Treatment No Information Insurance Providers Payer Name Payer Address Payer Phone Subscriber Number Group Number Insured Name Patient Relationship to Insured Coverage Start Date Coverage End Date [facility] [address] [place] [phone] [id number] BRIAN PUTNAM Self - patient is the insured Medical (General) History Medical History History ICD Code Benign essential hypertension Central pain syndrome Cervical spinal cord injury Depression Disturbance in sleep behavior Drug or alcohol risk assessment ex ciggerette smoker Surgical History Surgery Date(Month/Year) Extracorporeal shockwave lithotripsy for renal calculus Hx of Arthrodesis Cervical Knee
--- OUTSIDE RECORDS SUMMARY | 2024-11-03 15:56 | XMS_ITS | Encounter Summary ---
Author Organization [facility] Address [address] [facility] [address] [place] [address] Phone Care Team Providers Care Cloth Colors Examiner Name Role Phone Rikki Fletcher DO Primary Care Provider [phone] Reason for Visit * Reason Comments Med Refill Encounter Details Date Type Department Care Team (Late st Contact Info) Description 10/03/2024 Refill [facility] [address] [place] [address] Aashish Leslie MD [address] [facility] [address] [place] [address] Social History Tobacco Use Types Packs/Day Years Used Date Smoking Tobacco: Former Smokeless Tobacco: Never Alcohol Use Standard Drinks/Week [...] on file documented as of this encounter Visit Diagnoses Not on filedocumented in this encounter Care Teams Cloth Colors Examiner Relationship Specialty Start Date End Date Rikki Fletcher DO [address] [place] [address] PCP - General 05/17/20 documented as of this encounter
--- OUTSIDE RECORDS SUMMARY | 2024-11-03 15:56 | XMS_ITS | Encounter Summary ---
Author Organization [facility] Address [address] [place] [address] Care Team Providers Care Collar Sewer Name Role Phone Rikki Fletcher DO Primary Care Provider [phone] Encounter Details Date Type Department Care Team (Latest Contact Info) Description 07/17/2024 Lab Requisition [facility] - Main Lab [address] [facility] [place] [address] oRberto Rizvi MD [address] [place] [address] Neuromuscular dysfunction of bladder, unspecified Social History [...] ssp pneumoniae(A) KELSY 07/19/2024 11:00 AM EDT [facility] Comment: This is an edited result. [...] MICROBIOLOGY - GENERAL ORDER MASSIEL Final Result [facility] [address] [place] [address], [place] [phone] * Prothrombin time with INR (07/17/2024 3:55 PM EDT) Protime 11.7 10.6 - 13.9 sec LAB COAGULATION METHOD 07/17/2024 7:42 PM EDT [facility] INR 0.9 LAB COAGULATION METHOD 07/17/2024 7:42 PM EDT [facility] Blood Venous blood specimen / Unknown 07/17/2024 3:55 PM EDT 07/17/2024 6:52 PM EDT us Roberto Rizvi MD LAB BLOOD ORDERABLES Final Resul t [facility] [address] [place] [address], * (ABNORMAL) Complete blood count (07/17/2024 3:55 PM EDT) WBC 10.4 4.8 - 10.8 K/mcL LAB HEMETOLOGY METHOD 07/17/2024 7:37 PM EDT [facility] RBC 4.80 4.50 - 5.50 M/mcL LAB HEMETOLOGY METHOD 07/17/2024 7:37 PM EDT [facility] Hemoglobin 13.6 13.5 - 17.5 g/dL LAB HEMETOLOGY METHOD 07/17/2024 7:37 PM EDT [facility] Hematocrit 40.4(L) 42.0 - 54.0 % LAB HEMETOLOGY METHOD 07/17/2024 7:37 PM EDT [facility] MCV 84.3 79.0 - 98.0 FL LAB HEMETOLOGY METHOD 07/17/2024 7:37 PM EDT [facility] MCH 28.4 27.0 - 32.0 pcg LAB HEMETOLOGY METHOD 07/17/2024 7:37 PM EDT [facility] MCHC 33.7 32.0 - 37.0 g/dL LAB HEMETOLOGY METHOD 07/17/2024 7:37 PM EDT [facility] RDW 12.2 11.0 - 15.0 % LAB HEMETOLOGY METHOD 07/17/2024 7:37 PM EDT [facility] Platelets 322 130 - 400 K/mcL LAB HEMETOLOGY METHOD 07/17/2024 7:37 PM EDT [facility] MPV 10.5 7.0 - 11.0 FL LAB HEMETOLOGY METHOD 07/17/2024 7:37 PM EDT [facility] NRBC 0.0 <1.0 % LAB HEMETOLOGY METHOD 07/17/2024 7:37 PM EDT [facility] NRBC Absolute 0.00 <0.10 K/mcL LAB HEMETOLOGY METHOD 07/17/2024 7:37 PM EDT [facility] Blood Venous blood specimen / Unknown 07/17/2024 3:55 PM EDT 07/17/2024 6:52 PM EDT us Roberto Rizvi MD LAB BLOOD ORDERABLES Final Resul t [facility] [address] [place] [address], documented in this encounter Visit Diagnoses Diagnosis Neuromuscular dysfunction of bladder, unspecified documented in this encounter Care Teams Collar Sewer Relationship Specialty Start Date End Date Rikki Fletcher DO [address] [place] [address] PCP - General Family Medicine 07/18/24 documented as of this encounter
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
[2024-11-03 16:06] VITALS: BP 116/69; PULSE 73
== END 2024-11-03 16:15 | disposition home or self-care (01) ==
LOC: HO.PMC 15:54
PROVIDERS: PCP Family Medicine; Visit Provider Nurse Practitioner Family
DX: G82.50 Quadriplegia, unspecified (principal); G89.4 Chronic pain syndrome; M79.18 Myalgia, other site; G89.29 Other chronic pain; Z98.1 Arthrodesis status; S14.106A Unspecified injury at C6 level of cervical spinal cord, initial encounter; Z79.891 Long term (current) use of opiate analgesic
CPT/HCPCS: 99214; G2211

== ENCOUNTER → 2024-11-03 15:54 | Outpatient (BNVA) | payer OTHER, SELFPAY | PROVIDERS: PCP Family Medicine; Visit Provider Nurse Practitioner Family | DX: G82.50 Quadriplegia, unspecified (principal); G89.4 Chronic pain syndrome; M79.18 Myalgia, other site; Z98.1 Arthrodesis status; S14.106A Unspecified injury at C6 level of cervical spinal cord, initial encounter; F11.99 Opioid use, unspecified with unspecified opioid-induced disorder | CPT/HCPCS: 99212 ==

== ENCOUNTER 2025-03-03 15:42 | Outpatient (AMB) | payer OTHER, SELFPAY ==
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
[2025-03-03 15:59] VITALS: BP 120/62; RESP 16; BMI 29.0
--- OUTSIDE RECORDS SUMMARY | 2025-03-03 19:58 | XMS_ITS | Clinical Summary ---
Author Organization [facility] Address [address] [place] [address] Phone Care Team Providers Care Building Construction Contractor Name Role Phone Shanti Cabrera MD Primary Care Provider Allergies No known active allergies Medications amphetamine-dex troamphetamine XR (ADDERALL XR) 20 MG 24 hr capsule Take 1 capsule by mouth 2 (two) times a day Active baclofen (LIORESAL) 10 MG tablet Take 0.5 tablets by mouth 3 (three) times a day Active clonazePAM (KlonoPIN) 1 MG tablet Take 1 tablet by mouth 4 (four) times a day Active DULoxetine (CYMBALTA) [address] capsule Take 1 capsule by mouth 1 (one) time each day Active lidocaine (XYLOCAINE) 2 % jelly 1 Applicatorful 1 (one) time each day Active oxybutynin (DITROPAN) 5 MG tablet Take 1 tablet by mouth 3 (three) times a day Active senna (SENOKOT) 8.6 MG tablet Take 3 tablets by mouth every other day Active gabapentin (NEURONTIN) 300 MG capsule TAKE 1 CAPSULE BY MOUTH FOUR TIMES A DAY NEEDED FOR PAIN 022 Active ibuprofen (ADVIL,MOTRIN) 800 MG tablet Take 800 mg by mouth every 12 (twelve) hours if needed 022 Active ketoconazole (NIZORAL) 2 % shampoo APPLY TO SCALP AND FACE 2X/WK, LEAVE ON 5 MINUTES THEN WASH OFF 022 Active DULoxetine (CYMBALTA) [address] capsule Take 30 mg by mouth 1 (one) time each day Do not crush or chew. Active Buprenorphine 15 MCG/HR patch weekly Apply 1 patch topically 023 Active midodrine (PROAMATINE) 2.5 MG tablet Take 1 tablet (2.5 mg total) by mouth in the morning. 90 tablet 3 Active lisinopril 20 MG tabletIndicatio ns:Labile essential hypertension Take 1 tablet (20 mg total) by mouth 1 (one) time each day 90 tablet 3 Active cloNIDine (CATAPRES) 0.1 MG tablet Take 1 tablet (0.1 mg total) by mouth in the morning and 1 tablet (0.1 mg total) in the evening. 180 tablet 3 Active NON FORMULARY Apply topically 2 (two) times a day 2024 Discontinued( ed List Maintenance) alendronate (FOSAMAX) 70 MG tablet Take 1 tablet by mouth 1 (one) time per week 2024 Discontinued( ed List Maintenance) Calcium Carbonate-Vitam in D (calcium-vitami n D) 500-200 MG-UNIT tablet Take 1 tablet by mouth 1 (one) time each day 2024 Discontinued( ed List Maintenance) docusate sodium (COLACE) 100 MG capsule Take 1 capsule by mouth 2 (two) times a day 2024 Discontinued( ed List Maintenance) lamoTRIgine (LaMICtal) 50 MG dispersible tablet Take 1 tablet by mouth 2 (two) times a day 2024 Discontinued( ed List Maintenance) Naloxone HCl (Narcan) 4 MG/0.1ML liquid 2024 Discontinued( ed List Maintenance) OXcarbazepine (TRILEPTAL) 150 MG tablet Take 1 tablet by mouth 2 (two) times a day 2024 Discontinued( ed List Maintenance) polyethylene glycol (GLYCOLAX) 17 GM/SCOOP powder 1 packet by Other route 1 (one) time each day 2024 Discontinued( ed List Maintenance) silver sulfADIAZINE (SILVADENE, SSD) 1 % cream by Other route 1 (one) time each day 2024 Discontinued( ed List Maintenance) Belbuca [address] 1 FILM UNDER TONGUE EVERY 12 HOURS FOR PAIN 022 2024 Discontinued( ed List Maintenance) cloNIDine (CATAPRES) 0.1 MG tablet 0.1 mg in the morning and 0.1 mg in the evening. 2024 Discontinued(R eorder (does not appear on AVS)) hydrOXYzine (ATARAX) 50 MG tablet TAKE 1 TABLET BY MOUTH 3 TIMES A DAY FOR 30 DAYS NEEDED ANXIETY 2024 Discontinued(M ed List Maintenance) triamcinolone (KENALOG) 0.5 % cream APPLY TO AFFECTED AREA TWICE A DAY FOR 30 DAYS 2024 Discontinued(M ed List Maintenance) Trintellix 10 MG tablet Take 1 tablet by mouth 1 (one) time each day 2024 Discontinued(M ed List Maintenance) lisinopril 10 MG tabletIndicatio ns:Essential hypertension,La bile essential hypertension Take 1 tablet (10 mg total) by mouth 1 (one) time each day 30 tablet 1 024 2024 Discontinued midodrine (PROAMATINE) 2.5 MG tablet TAKE 1 TABLET BY MOUTH 1 TIME DAILY 60 MINUTES BEFORE A MEAL 90 tablet 3 024 2024 Discontinued(R eorder (does not appear on AVS)) Active Problems Problem Noted Date Diagnosed Date Labile essential hypertension 08/18/2020 Essential hypertension 07/13/2020 Resolved Problems Problem Noted Date Diagnosed Date Resolved Date Benzodiazepine dependence 08/30/2021 Central pain syndrome 08/30/20212021 Cervical spinal cord injury 08/30/2021 08/30/2021 Chronic pain syndrome 08/30/20212021 Depressive disorder 08/30/2021 08/31/19 22 Disorder of inguinal region 08/30/2021 08/30/2021 Disturbance in sleep behavior 08/30/2021 08/30/2021 Ex-cigarette smoker 08/30/2021 08/31/19 22 Finding of activity of daily living 08/30/2021 08/30/2021 Overview (08/30/2021): Oswestry Disability Index and Qu bec Back Pain Disability Scale not appropriate given [...] 08/30/2021 08/30/2021 History of thrombophlebitis 01/04/2007 08/30/2021 Encounters Date Type Department Care Team Description 02/18/2025 4:15 PM EDT Office Visit [facility] [address] [place] [address] Aashish Leslie MD Labile essential hypertension (Primary Dx) 12/30/2024 Orders Only [facility] [address] [address] Aashish Leslie MD Essential hypertension (Primary Dx) from Last 3 Months Immunizations Immunization Administration Dates Next Due Moderna [...] Sign Reading Time Taken Comments Blood Pressure 138/69 02/18/2025 4:15 PM EDT Pulse 61 02/18/2025 4:15 PM EDT Temperature - - Respiratory Rate - - Oxygen Saturation 96% 12/06/2022 3:53 PM EDT Inhaled Oxygen Concentration - - Weight 79.4 kg (175 lb) 12/06/2022 3:53 PM EDT Height 167.6 cm (5' 6 ) 12/06/2022 3:53 PM EDT Body Mass Index 28.25 12/06/2022 3:53 PM EDT Plan of Treatment Upcoming Encounters Date Type Department Care Team (Late st Contact Info) Description 02/10/2026 4:15 PM EDT Office Visit [facility] [address] [place] [phone] Aashish Leslie MD [address] [address] Health Maintenance Due Date Last Done Comments Hepatitis B Vaccine (1 of 3 - 19+ 3-dose series) 02/05 Pneumococcal Vaccine: Peds ( 0 to 5 Years) and At-Risk Patients (6 to 49 Years) (1 of 2 - PCV) 1997 Influenza Vaccine (#1) 2025 Procedures Procedure Name Priority Date/Time Associated Diagnosis Comments URINE ALBUMIN / CREATININE RATIO Routine 02/18/2025 4:45 PM EDT Essential hypertension COMPREHENSIVE METABOLIC PANEL Routine 02/18/2025 4:45 PM EDT Essential hypertension RENAL FUNCTION PANEL Routine 02/18/2025 4:45 PM EDT Essential hypertension from Last 3 Months Results * Urine Albumin / Creatinine Ratio (02/18/2025 4:45 PM EDT) Creatinine, Ur 22.8 Not Estab. mg/dL [facility] Albumin, Urine 5.5 Not Estab. ug/mL [facility] Albumin/Creatin ine Ratio 24 0 - 29 mg/g creat [facility] Comment: Normal: 0 - 29 Moderately increased: 30 - 300 Severely increased: >300 Urine Urine specimen obtained by clean catch procedure / Unknown 02/18/2025 4:45 PM EDT 02/18/2025 us Aashish Leslie MD LAB URINE ORDERABLES Final Resul t [facility] [address] [place] [address] * Renal Function Panel (02/18/2025 4:45 PM EDT) Pathologist [facility] Phosphorus 3.2 2.8 - 4.1 mg/dL [facility] Blood Venous blood / Unknown 02/18/2025 4:45 PM EDT 02/18/2025 us Aashish Leslie MD LAB BLOOD ORDERABLES Final Resul t Performing Organization Address City/[facility]/ZIP Co de Phone Number [facility] [address] [place] [address] * (ABNORMAL) Comprehensive Metabolic Panel (02/18/2025 4:45 PM EDT) [facility] Glucose 98 70 - 99 mg/dL [facility] BUN 9 6 - 24 mg/dL [facility] Creatinine 0.32(L) 0.76 - 1.27 mg/dL [facility] eGFR CKD-EPI CR 2020 145 >59 mL/min/1.7 3 [facility] BUN/Creatinine Ratio 28(H) 9 - 20 [facility] Sodium 142 134 - 144 mmol/L [facility] Potassium 3.8 3.5 - 5.2 mmol/L [facility] Chloride 101 96 - 106 mmol/L [facility] Bicarbonate (CO2) 28 20 - 29 mmol/L [facility] Calcium 8.7 8.7 - 10.2 mg/dL [facility] Total Protein 6.5 6.0 - 8.5 g/dL [facility] Albumin 4.0(L) 4.1 - 5.1 g/dL [facility] Globulin 2.5 1.5 - 4.5 g/dL [facility] Total Bilirubin 0.3 0.0 - 1.2 mg/dL [facility] Alkaline Phosphatase 76 47 - 123 IU/L [facility] AST (SGOT) 22 0 - 40 IU/L [facility] ALT (SGPT) 17 0 - 44 IU/L [facility] Blood Venous blood / Unknown 02/18/2025 4:45 PM EDT 02/18/2025 us Aashish Leslie MD LAB BLOOD ORDERABLES Final Resul t [facility] [address] [place] [address] from Last 3 Months Insurance [facility] ([id number]) [facility] ([id number]) Care Teams Building Construction Contractor Relationship Specialty Start Date End Date Shanti Cabrera MD [address] [place] [id number] PCP - General Internal Medicine 02/18/25
--- OUTSIDE RECORDS SUMMARY | 2025-03-03 19:58 | XMS_ITS | Clinical Summary ---
Author Organization [facility] Address [address] [place] [address] Care Team Providers Care Sorter Laundry Articles Name Role Phone Unavailable Primary Care Provider Unavailabl e Allergies No known active allergies Medications Amphetamine-De xtroamphetamin e (ADDERALL PO) Take by mouth. Activ e nitrofurantoin (Macrodantin) 50 MG capsule Take 1 capsule by mouth every 6 (six) hours. Active Ergocalciferol (Vitamin D2) 50 MCG (2000 UT) tablet take 1 capsule ([id number]) by oral route every week Active oxyCODONE [...] Encounters Date Type Department Care Team Description 02/16/2025 3:00 PM EDT Office Visit [facility] [address] [place] [address] Orquidea Ruby 01/20/2025 Telephone [facility] [address] [place] [phone] Kym Pedroza BDS appt 01/15/2025 2:30 PM EDT Office Visit [facility] [address] [place] [phone] Kym Pedroza BDS from Last 3 Months Social History Tobacco Use Types Packs/Day Years Used Date Smoking Tobacco: Former Cigarettes Smokeless Tobacco: Never Tobacco Cessation:Counseling Given: Not Answered Alcohol Use Standard Drinks/Week Comments Never 0 [...] Care Team (Late st Contact Info) Description 03/24/2025 3:00 PM EST Office Visit [facility] [address], [place] [phone] Leland Spear, GENO [address] [place], [place] [phone] 08/19/2025 3:00 PM EDT Office Visit [facility] [address] [place], [place] [phone] Edward Gonzales Health Maintenance Due Date Last Done Comments CT Colonography 1978 Colonoscopy 1978 Colorectal Cancer Screening 1978 Dental X-Ray: Bitewings 1978 Dental X-Ray: Full Mouth 1978 Depression Screening 1978 FIT DNA/Cologuard 1978 FIT 1978 FOBT 1978 HIV Screening 1978 Lipid Panel 1978 SDOH Screening 1978 Sigmoidoscopy 1978 Disability Screening 1978 Alcohol/Substance Use Screening 1990 Family Planning (PISQ) 1993 Hepatitis C Screening 02/06/1996 DTaP/Tdap/Td Vaccines (1 - Tdap) 1997 Hepatitis B Vaccines (1 of 3 - 19+ 3-dose series) 1997 Dental Oral Exam 12/30/2024 07/01/2024 COVID-19 Vaccine ( - season) 2025 05/12/2021, 08/26/2020, 08/05/2020 Influenza Vaccine (#1) 2025 Dental Prophylaxis 08/18/2025 02/16/2025, 0 06/04/2024, 11/23/2022, Additional history exists Tobacco Screening 02/16/2026 02/16/2025 Zoster Vaccines (1 of 2) 02/06/2028 RSV [...] Years) and At-Risk Patients (6 to 49) Years Aged Out No longer eligible based on patient's age to complete this topic RSV under 20 months Aged Out No longe r eligible based on patient's age to complete this topic Rotavirus Vaccines Aged Out No longer eligible based on patient's age to complete this topic Procedures Procedure Name Priority Date/Time Associated Diagnosis Comments CASE PRESENTATION, DETAILED AND EXTENSIVE TREATMENT PLANNING Routine 02/16/2025 3:00 PM EDT PROPHYLAXIS - ADULT Routine 02/16/2025 3:00 PM EDT 27 CROWN PREP Routine 01/15/2025 2:30 PM EDT 22 CROWN PREP Routine 01/15/2025 2:30 PM EDT PERIODIC ORAL EVALUATION - ESTABLISHED PATIENT Routine 07/01/2024 4:00 PM EST from Last 3 Months or Most Recently Relevant to Health Maintenance Insurance DENTAL - [facility]
--- OUTSIDE RECORDS SUMMARY | 2025-03-03 19:58 | XMS_ITS | Encounter Summary ---
Author Organization [facility] Address [address] [place] [address] Care Team Providers Care Horticultural Agent Name Role Phone Unavailable Primary Care Provider Unavailabl e Reason for Visit * Reason Onset Date Comments temp crown fell off 09/23/2024 Encounter Details Date Type Department Care Team (Late st Contact Info) Description 09/23/2024 Telephone [facility] [address] [place], [place] [phone] Kym Pedroaz BDS [address] [place], [place] [phone] temp crown fell off Social History Tobacco [...] PAR side. Please reach out to patient DR documented in this encounter Plan of Treatment Upcoming Encounters Date Type Department Care Team (Late st Contact Info) Description 03/24/2025 3:00 PM EST Office Visit [facility] [address] [place], [place] [phone] Leland Spear DMD [address] [place] [address] 08/19/2025 3:00 PM EDT Office Visit [facility] [address] [place] [address] Edward Gonzales documented as of this encounter Visit Diagnoses Not on filedocumented in this encounter
--- OUTSIDE RECORDS SUMMARY | 2025-03-03 19:58 | XMS_ITS | Encounter Summary ---
Author Organization [facility] Address [address] [place] [address] Care Team Providers Care Employment Counselor Name Role Phone Rikki Fletcher DO Primary Care Provider [phone] Encounter Details Date Type Department Care Team (Late st Contact Info) Description 12/12/[address] [facility] - Main Lab [address] [facility] [place] [address] Da Uriarte PA [address] [place] [phone] Urinary tract infection, site not specified Social History Tobacco Use Types Packs/Day Years [...] Procedure Name Priority Date/Time Associated Diagnosis Comments CULTURE URINE Routine 12/12/2024 4:15 PM EDT Urinary tract infection, site not specified documented in this encounter Results * (ABNORMAL) Culture urine (12/12/2024 4:15 PM EDT) Culture, Urine >=100,000 CFU/mL Klebsiella aerogenes(A) KELSY 12/14/2024 8:37 AM EDT [facility] Comment: This is an edited result. Previous organism was Gram negative bacilli on 12/13/2024 at 1324 EDT. Urine Indwelling urinary catheter / Unknown Non-blood Collection / Unknown 12/12/2024 4:15 PM EDT 12/12/2024 6:21 PM EDT Narrative Organism Antibiotic Method Susceptibility Klebsiella aerogenes Amoxicillin/Clavulanate KELSY >=32 ug/ml: Resistant Klebsiella aerogenes Cefoxitin KELSY >=64 ug/ml: Resistant Klebsiella aerogenes Ceftazidime KELSY 16 ug/ml: Resistant Klebsiella aerogenes Ceftriaxone KELSY 32 ug/ml: Resistant Klebsiella aerogenes Cefepime KELSY 0.25 ug/ml: Susceptible Klebsiella aerogenes Amikacin KELSY <=1 ug/ml: Susceptible Klebsiella aerogenes Gentamicin KELSY <=1 ug/ml: Susceptible Klebsiella aerogenes Ciprofloxacin KELSY <=0.06 ug/ml: Susceptible Klebsiella aerogenes Levofloxacin KELSY <=0.12 ug/ml: Susceptible Klebsiella aerogenes Nitrofurantoin KELSY 32 ug/ml: Susceptible Klebsiella aerogenes Trimethoprim/Sulfamethoxazole KELSY <=20 ug/ml: Susceptible us Da Uriarte PA LAB MICROBIOLOGY - GENERAL ORD ERABLES Final Result [facility] LAB [address] [place] [address], documented in this encounter Visit Diagnoses Diagnosis Urinary tract infection, site not specified documented in this encounter Care Teams Employment Counselor Relationship Specialty Start Date End Date Rikki Fletcher DO [address] [place] [address] PCP - General Family Medicine 07/18/24 documented as of this encounter
--- OUTSIDE RECORDS SUMMARY | 2025-03-03 19:59 | XMS_ITS | Encounter Summary ---
Author Organization [employer] Address [address] [facility] 7t [place] [address] Care Team Providers Care Supervisor Counseling And Guidance Name Role Phone Unavailable Primary Care Provider Unavailabl e Encounter Details Date Type Department Care Team (Latest Contact Info) Description 10/12/2020 Abstract [facility] CONVERSIONS Dental, Provider, DDS Social History [...] Description 03/24/2025 3:00 PM EST Office Visit [facility] D[facility] [address] [place], [place] [phone] Leland Spear, [address]ENO [address] [place] [address] 08/19/2025 3:00 PM EDT Office Visit [facility] ADULT DENTAL [address] [place] [address] Edward Gonzales documented as of this encounter Visit Diagnoses Not on filedocumented in this encounter
--- OUTSIDE RECORDS SUMMARY | 2025-03-03 19:59 | XMS_ITS | Encounter Summary ---
Author Organization [employer] Address [address] [facility] 7t [place] [address] Care Team Providers Care Violin Tutor Name Role Phone Unavailable Primary Care Provider Unavailabl e Encounter Details Date Type Department Care Team (Latest Contact Info) Description 06/06/2018 Abstract [facility] CONVERSIONS Dental, Provider, DDS Social History Tobacco [...] Description 03/24/2025 3:00 PM EST Office Visit [facility] D[facility] [address] [place] [address] Leland Spear, [address]ENO [address] [place] [address] 08/19/2025 3:00 PM EDT Office Visit [facility] [address] [place] [address] Edward Gonzales documented as of this encounter Visit Diagnoses Not on filedocumented in this encounter
--- OUTSIDE RECORDS SUMMARY | 2025-03-03 19:59 | XMS_ITS | Clinical Summary ---
Author Organization [address] [facility] Address [address] [place] [address] Phone Care Team Providers Care Head Of Science Name Role Phone Rikki Fletcher DO Primary Care Provider Encounters Date Type Department Care Team Description 12/12/2024 Lab Requisition [facility] - Main Lab [address] [facility] [place] [address] Da Uriarte PA Urinary tract infection, site not specified from Last 3 Months Social History Tobacco Use Types Packs/Day Years Used Date Smoking Tobacco: Never Assessed Sex and Gender Information Value Date Recorded Sex Assigned at Not on file Legal Sex Male 8:48 AM EST Gender Identity Not on file Sexual Orientation Not on file Plan of Treatment Health Maintenance Due Date Last Done Comments Colorectal Cancer Screening: Colonoscopy 1978 DTaP,Tdap,and Td Vaccines (1 - Tdap) 1997 Hepatitis B Vaccines (1 of 3 - 19+ 3-dose series) 1997 Depression Screening 05/07/2024 Cholesterol Screening (Lipid Panel) 07/18/2024 HIV Screening 07/18/2024 Hepatitis C Screening 07/18/2024 Medicare Annual Wellness Visit 07/18/2024 Social Influencers of Health Screening 07/18/2024 COVID-19 Vaccine ( - 2023-2 5 season) 2025 Influenza Vaccine (#1) 2025 RSV Immunization Adult Patie nts (1 - 1-dose 75+ series) 2053 HIB [...] and At-Risk Patients (6 to 49 Years) Aged Out No longer eligible b [...] EDT Urinary tract infection, site not specified from Last 3 Months Results * (ABNORMAL) Culture urine (12/12/2024 4:15 PM EDT) [facility] Culture, Urine >=100,000 CFU/mL Klebsiella aerogenes(A) KELSY 12/14/2024 8:37 AM EDT [facility] LAB Comment: This is an edited result. [...] Trimethoprim/Sulfamethoxazole KELSY <=20 ug/ml: Susceptible us Da JAY LAB MICROBIOLOGY - GENERAL ORD ERABLES Final Result [facility] LAB [address] [place] [address], from Last 3 Months Insurance [facility] MEDIC[facility] Member Subscriber Plan / Payer (Ef fective 2017-Present) Name:BRIAN PUTNAM Relation to Subscriber:Self Name:Brian Putnam Payer ID:[id number] Group ID:[id number] Type:Not on file Address: [place] [address] [address] [place] [address] Care Teams Head Of Science Relationship Specialty Start Date End Date Rikki Fletcher DO [address] [place], [place] PCP - General Family Medicine 07/18/24
--- OUTSIDE RECORDS SUMMARY | 2025-03-03 19:59 | XMS_ITS | Encounter Summary ---
Author Organization [facility] Address [address] [place] [address] Care Team Providers Care Supervisor Industrial Garment Name Role Phone Rikki Fletcher DO Primary Care Provider [phone] Encounter Details Date Type Department Care Team (Late st Contact Info) Description 09/17/2024 Lab Requisition [facility] - Main Lab 299 [facility] [place] [address] Ngoc Beck PA [address] [place] [address] Urinary tract infection, site not specified; Neuromuscular dysfunction of bladder, unspecified Social History [...] Date/Time Associated Diagnosis Comments CULTURE URINE Routine 09/17/2024 12:00 AM EDT Urinary tract infection, site not specified Neuromuscular dysfunction of bladder, unspecified documented in this encounter Results * (ABNORMAL) Culture urine (09/17/2024 12:00 AM EDT) Culture, Urine >100,000 CFU/mL Escherichia coli(A) KELSY 09/19/2024 11:00 AM EDT [facility] Urine Urine specimen obtained by clean catch procedure / Unknown 09/17/2024 09/17/2024 6:01 PM EDT Narrative Organism Antibiotic Method Susceptibility Escherichia coli Amoxicillin/Clavulanate KELSY <=2 ug/ml: Susceptible Escherichia coli Ampicillin/Sulbactam KELSY <=2 ug/ml: Susceptible Escherichia coli Piperacillin/Tazobactam KELSY <=4 ug/ml: Susceptible Escherichia coli Cefazolin (Urine) KELSY <=1 ug/ml: Susceptible Escherichia coli Cefoxitin KELSY <=4 ug/ml: Susceptible Escherichia coli Ceftazidime KELSY <=0.5 ug/ml: Susceptible Escherichia coli Ceftriaxone KELSY <=0.25 ug/ml: Susceptible Escherichia coli Cefepime KELSY <=0.12 ug/ml: Susceptible Escherichia coli Meropenem KELSY <=0.25 ug/ml: Susceptible Escherichia coli Amikacin KELSY 2 ug/ml: Susceptible Escherichia coli Gentamicin KELSY <=1 ug/ml: Susceptible Escherichia coli Ciprofloxacin KELSY <=0.06 ug/ml: Susceptible Escherichia coli Levofloxacin KELSY <=0.12 ug/ml: Susceptible Escherichia coli Nitrofurantoin KELSY 32 ug/ml: Susceptible Escherichia coli Trimethoprim/Sulfamethoxazole KELSY <=20 ug/ml: Susceptible us Ngoc JAY LAB MICROBIOLOGY - GENERAL ORD ERABLES Final Result [facility] H[facility]PITAL LAB [address] [place] [address], documented in this encounter Visit Diagnoses Diagnosis Urinary tract infection, site not specified Neuromuscular dysfunction of bladder, unspecified documented in this encounter Care Teams Supervisor Industrial Garment Relationship Specialty Start Date End Date Rikki Fletcher DO [address] [place] [address] PCP - General Family Medicine 07/18/24 documented as of this encounter
--- OUTSIDE RECORDS SUMMARY | 2025-03-03 19:59 | XMS_ITS | Encounter Summary ---
Author Organization [facility] Address [address] [place] [address] Care Team Providers Care Office Cleaner Name Role Phone Rikki Fletcher DO Primary Care Provider [phone] Encounter Details Date Type Department Care Team (Latest Contact Info) Description 07/17/2024 Lab Requisition [facility] - Main Lab [address] [facility] [place] [address] Roberto Rizvi MD [address] [place] [address] Neuromuscular dysfunction of bladder, unspecified Social History [...] ssp pneumoniae(A) KELSY 07/19/2024 11:00 AM EDT [facility] Comment: This is an edited [...] MICROBIOLOGY - GENERAL ORDER MASSIEL Final Result [facility] [address] [place] [address], [place] [phone] * Prothrombin time with INR (07/17/2024 3:55 PM EDT) Protime 11.7 10.6 - 13.9 sec LAB COAGULATION METHOD 07/17/2024 7:42 PM EDT [facility] INR 0.9 LAB COAGULATION METHOD 07/17/2024 7:42 PM EDT [facility] Blood Venous blood specimen / Unknown 07/17/2024 3:55 PM EDT 07/17/2024 6:52 PM EDT us Roberto Rizvi MD LAB BLOOD ORDERABLES Final Resul t [facility] [address] [place] [address], * (ABNORMAL) Complete blood count (07/17/2024 3:55 PM EDT) WBC 10.4 4.8 - 10.8 K/mcL LAB HEMETOLOGY METHOD 07/17/2024 7:37 PM EDT [facility] RBC 4.80 4.50 - 5.50 M/mcL LAB HEMETOLOGY METHOD 07/17/2024 7:37 PM EDT [facility] Hemoglobin 13.6 13.5 - 17.5 g/dL LAB HEMETOLOGY METHOD 07/17/2024 7:37 PM EDT [facility] Hematocrit 40.4(L) 42.0 - 54.0 % LAB HEMETOLOGY METHOD 07/17/2024 7:37 PM EDT [facility] MCV 84.3 79.0 - 98.0 FL LAB HEMETOLOGY METHOD 07/17/2024 7:37 PM EDT [facility] MCH 28.4 27.0 - 32.0 pcg LAB HEMETOLOGY METHOD 07/17/2024 7:37 PM EDT [facility] MCHC 33.7 32.0 - 37.0 g/dL LAB HEMETOLOGY METHOD 07/17/2024 7:37 PM EDT [facility] RDW 12.2 11.0 - 15.0 % LAB HEMETOLOGY METHOD 07/17/2024 7:37 PM EDT [facility] Platelets 322 130 - 400 K/mcL LAB HEMETOLOGY METHOD 07/17/2024 7:37 PM EDT [facility] MPV 10.5 7.0 - 11.0 FL LAB HEMETOLOGY METHOD 07/17/2024 7:37 PM EDT [facility] NRBC 0.0 <1.0 % LAB HEMETOLOG METHOD 07/17/2024 7:37 PM EDT [facility] NRBC Absolute 0.00 <0.10 K/mcL LAB HEMETOLOGY METHOD 07/17/2024 7:37 PM EDT [facility] Blood Venous blood specimen / Unknown 07/17/2024 3:55 PM EDT 07/17/2024 6:52 PM EDT us Roberto Rizvi MD LAB BLOOD ORDERABLES Final Resul t [facility] [address] [place] [address], documented in this encounter Visit Diagnoses Diagnosis Neuromuscular dysfunction of bladder, unspecified documented in this encounter Care Teams Office Cleaner Relationship Specialty Start Date End Date Rikki Fletcher DO [address] [place] [address] PCP - General Family Medicine 07/18/24 documented as of this encounter
--- OUTSIDE RECORDS SUMMARY | 2025-03-03 19:59 | XMS_ITS | Encounter Summary ---
Author Organization [employer] Address [address] [facility] 7t [place] [address] Care Team Providers Care Towel Stretcher Name Role Phone Unavailable Primary Care Provider Unavailabl e Reason for Visit * Reason Onset Date Comments appt 01/20/2025 Encounter Details Date Type Department Care Team (Late st Contact Info) Description 01/20/2025 Telephone [facility] DENTAL [address] [place] [phone] Kym Pedroza BDS [address] [place], [place] [phone] appt Social History Tobacco Use Types Packs/Day [...] Miscellaneous Notes * Telephone Encounter - Cynthia Wileltt - 01/20/2025 1:27 PM EDT Patient states he was told in office that he would get a call today for scheduling for delivery andis wiating for call. He is concerned about getting a good day and time for delivery when case comesin. Please reach out to patient for scheduling DR documented in this encounter Plan of Treatment Upcoming Encounters Date Type Department Care Team (Late st Contact Info) Description 03/24/2025 3:00 PM EST Office Visit [facility] D[facility] [address] [place] [address] [address] Spear, DMD [address] [place] [address] 08/19/2025 3:00 PM EDT Office Visit [facility] ADULT DENTAL [address] [place] [address] Edward Gonzales documented as of this encounter Visit Diagnoses Not on filedocumented in this encounter
--- OUTSIDE RECORDS SUMMARY | 2025-03-03 19:59 | XMS_ITS | Patient Health Record ---
Author Organization [facility] t[facility] Address [address] [place] [phone] Support Name Relationship Address Phone LUCYBRIAN RODRIGUEZ Guarantor Unknown [phone] Reason For Referral No Information Medications Medication SIG (Take, Route, Frequency, Duration) Notes Start Date End Date Status DULoxetine HCl 60 MG Capsule Delayed Release Particles 1 capsule Orally Once a day Active Fosamax Active LaMICtal Active Lisinopril 10 MG Tablet 1 tablet Orally Once a day Active Methadone HCl 10mg 1 tablet 3 tabs qd Active Narcan 4mg as directed Nasally Active oxyBUTYnin 5mg nasal spray Transdermal Active oxyCODONE HCl 10 MG Tablet 1 tablet as n eeded Orally 1 tab Active Senna Active Amphetamine-Dextroamphetam ine 20 MG Tablet 1 tablet Orally Twice a day Active Vitamin D Active Calcium Active Social History Tobacco Use: Social History Observation Description Date Details (start date - stop date) Former Smoker NA - NA Social History Tobacco Use: Social Info Question Answer Notes Tobacco Use/Smoking Are you a former smoker How long has it been since you last smoked? 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 Plan Of Treatment No Information Insurance Providers Payer Name Payer Address Payer Phone Subscriber Number Group Number Insured Name Patient Relationship to Insured Coverage Start Date Coverage End Date [facility] [address] [place] [phone] [id number] INYD BRIAN Self - patient is the insured Medical (General) History Medical History History ICD Code Benign essential hypertension Central pain syndrome Cervical spinal cord injury Depression Disturbance in sleep behavior Drug or alcohol risk assessment ex ciggerette smoker Surgical History Surgery Date(Month/Year) Extracorporeal shockwave lithotripsy for renal calculus Hx of Arthrodesis Cervical Knee
== END 2025-03-03 16:02 | disposition home or self-care (01) ==
LOC: HO.PMC 15:43
PROVIDERS: PCP Family Medicine; Visit Provider Nurse Practitioner Family
DX: G82.50 Quadriplegia, unspecified (principal); G89.4 Chronic pain syndrome; M79.18 Myalgia, other site; G89.29 Other chronic pain; Z98.1 Arthrodesis status; S14.106A Unspecified injury at C6 level of cervical spinal cord, initial encounter; F11.99 Opioid use, unspecified with unspecified opioid-induced disorder
CPT/HCPCS: 99214; G2211

== ENCOUNTER → 2025-03-03 15:42 | Outpatient (BNVA) | payer OTHER, SELFPAY | PROVIDERS: PCP Family Medicine; Visit Provider Nurse Practitioner Family | DX: G89.4 Chronic pain syndrome (principal); G82.50 Quadriplegia, unspecified; M79.18 Myalgia, other site; Z98.1 Arthrodesis status; S14.106D Unspecified injury at C6 level of cervical spinal cord, subsequent encounter; Z51.81 Encounter for therapeutic drug level monitoring; Z79.891 Long term (current) use of opiate analgesic | CPT/HCPCS: 99212 ==